=== PATIENT | male | born 1965 | race Caucasian/White ===

== ENCOUNTER 2018-11-01 21:35 | Inpatient (IN) | payer OTHER ==
[~2018-11-01] VITALS: Ht 180.3 cm; Wt 93.2 kg
[2018-11-01 22:15] VITALS: BP 156/85; PULSE 74; RESP 18; Ht 180.3 cm; Wt 93.2 kg
[2018-11-01] MEDS ORDERED: ACETAMINOPHEN 325 MG TAB PO PRN (22:30)
[2018-11-01] MEDS ORDERED: hydrALAzine 20 MG INJ IV PRN (22:30)
[2018-11-01] MEDS ORDERED: GLUCOSE GEL 15 GRAM TUBE BUCCAL PRN (23:00)
[2018-11-01] MEDS ORDERED: GLUCOSE GEL 15 GRAM TUBE PO PRN ×2 (23:00)
[2018-11-01] MEDS ORDERED: DEXTROSE 50% 50 ML SYRINGE IV PRN ×2 (23:00)
[2018-11-01] MEDS ORDERED: GLUCAGON 1 MG INJ IM PRN (23:00)
[2018-11-01] MEDS: ATORVASTATIN 10 MG TAB PO SCH (23:30)
[2018-11-01] MEDS: MAGNESIUM OXIDE 400 MG TAB PO SCH (23:30)
[2018-11-01] MEDS: FAMOTIDINE 20 MG TAB PO SCH (23:30)
[2018-11-01] MEDS: LEVETIRACETAM 500 MG TAB PO SCH (23:31)
[2018-11-01] MEDS: METOPROLOL 100 MG TAB PO SCH (23:31)
[2018-11-02] MEDS: ACCU-CHEK XX SCH (02:00)
[2018-11-02 02:25] VITALS: BP 150/82; PULSE 74; RESP 18
[2018-11-02] MEDS ORDERED: glipiZIDE 5 MG TAB GTB SCH (07:05)
[2018-11-02] MEDS: METOPROLOL 100 MG TAB PO SCH ×2 (07:19→21:02)
[2018-11-02] MEDS: metFORMIN 500 MG TAB PO SCH ×2 (07:57→17:40)
[2018-11-02] MEDS: INSULIN ASPART [NOVOLOG] 3 ML PEN SC SCH ×4 (07:59→20:58)
[2018-11-02 08:00] VITALS: BP 149/81; PULSE 68; RESP 18
[2018-11-02] MEDS: MAGNESIUM OXIDE 400 MG TAB PO SCH ×2 (08:52→21:02)
[2018-11-02] MEDS: HYDROCHLOROTHIAZIDE 12.5 MG CAP PO SCH (08:54)
[2018-11-02] MEDS: AMLODIPINE 10 MG TAB PO SCH (08:55)
[2018-11-02] MEDS: LEVETIRACETAM 500 MG TAB PO SCH ×2 (08:55→21:02)
[2018-11-02] MEDS: FAMOTIDINE 20 MG TAB PO SCH ×2 (08:55→21:02)
[2018-11-02] MEDS: DOCUSATE SODIUM 100 MG CAP PO SCH ×2 (08:55→21:01)
--- NOTE | 2018-11-02 10:48 | CONS ---
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 ACTIVE COMORBIDITIES: 1. Hypertension. 2. Hyponatremia. 3. Diabetes mellitus. 4. Impairments in self-care, mobility and cognition. HISTORY OF PRESENT ILLNESS: The patient is a pleasant 53-year-old right-handed gentleman who was admitted to an outside hospital with the sudden onset of left- sided weakness and hypertension. A head CT was performed and demonstrated an acute hemorrhagic CVA in the right basal ganglia and thalamic regions. The patient's hospital course was also notable for hyponatremia, hypocalcemia and hypertension. The patient noted to have significant impairments in self-care, mobility and cognition as compared to baseline. The patient has been cleared to transfer to the rehabilitation unit for comprehensive interdisciplinary rehab care. FUNCTIONAL HISTORY: Prior to recent events, he was independent in self-care tasks and mobility. Currently, he requires minimal to moderate assist for self- care and mobility tasks. I have reviewed the preadmission screen and patient's current functional status is consistent with the preadmission screen. FAMILY AND SOCIAL HISTORY: The patient reportedly had been living alone but does have a supportive family who he will be residing with upon discharge. PAST MEDICAL HISTORY: 1. Hypertension. 2. Diabetes mellitus. 3. Reported history of ETOH abuse. CURRENT MEDICATIONS: 1. Insulin sliding scale. 2. Amlodipine 10 mg p.o. daily. 3. Atorvastatin 10 mg p.o. daily. 4. Pepcid 20 mg b.i.d. 5. Glipizide 5 mg p.o. b.i.d. 6. Hydrochlorothiazide 12.5 mg p.o. daily. 7. Keppra 500 mg p.o. b.i.d. 8. Magnesium oxide 400 mg b.i.d. 9. Metformin 500 mg b.i.d. 10. Metoprolol 100 mg p.o. b.i.d. ALLERGIES: THE PATIENT WITH NO KNOWN DRUG ALLERGIES. PHYSICAL EXAMINATION: VITAL SIGNS: He is currently afebrile with stable vital signs. HEENT: The extraocular motions are intact. Oropharynx clear. NECK: Supple. LUNGS: Clear anteriorly. CARDIAC: S1, S2. ABDOMEN: Soft, nontender, positive bowel sounds. NEUROLOGIC: He is awake and alert and he is oriented x3. He can follow simple 1-step commands. He has 1/3 object recall at 5 minutes. He demonstrates good strength in the right upper and lower extremity. Left upper extremity with 3+ strength, left lower extremity with 3/5 strength proximally, patient with notable decreased dorsiflexion. PLAN: The patient has been admitted for comprehensive interdisciplinary acute rehab and is anticipated to tolerate 3 hours of daily therapy in divided doses for at least 5/7 days a week. The treatment plan will include: 1. Physical therapy to focus on bed mobility, transfers, and household ambulation with the goal of having the patient reach standby assist level. 2. Occupational therapy to focus on hygiene, grooming, dressing, bathing, and toileting activities with the goal of having the patient reach a standby assist level. 3. Rehabilitation nursing for carryover of therapeutic interventions, the goal of continent of bowel and bladder, and the goal of patient and family education with regard to the aforementioned issues. 4. Speech therapy for full cognitive assessment and retraining with the goal of having the patient return to baseline cognition. We will have an interdisciplinary cognitive program with physical therapy and occupational therapy including functional cognitive tasks with the goal of having the patient reach a standby assist level for cognition. REHABILITATION BARRIER: Weakness. INTERVENTION FOR BARRIER: Interdisciplinary approach. ESTIMATED LENGTH OF STAY: 10 days. DISPOSITION GOAL: Home with family. I acknowledge that I performed a full physical examination on this patient within 24 hours of admission. I believe the patient is a good candidate for comprehensive interdisciplinary rehab care and is anticipated to make reasonable goals in a reasonable period of time as outlined above. Dictated By: YOUNG MAYORGA/JANELLE Conf#: [id number] DID#: [id number] MTDD
--- NOTE | 2018-11-02 10:57 | HP ---
DATE OF ADMISSION: 11/01/2018 HISTORY OF PRESENT ILLNESS: The patient is a 53-year-old gentleman with past medical history of hype rtension, diabetes, alcohol use. Patient presents to [facility] after noting sudden onset of left-sided upper extremity and lower extremity weakness. Patient has work up and no izaiah to have intracranial hemorrhage in the basal ganglia. The patient was treated with blood pressur e control, had CTA that showed no plaquing, no narrowing, normal CTA. Blood pressure was managed. T he patient was started on treatments transferred to ARU for further physical therapy. PAST MEDICAL HISTORY: Significant for hypertension, diabetes. MEDICATIONS: Include: 1. Senna. 2. Amlodipine. 3. Hydrochlorothiazide. 4. Metformin. 5. Insulin. 6. Lipitor. 7. Metoprolol. 8. Keppra. 9. Famotidine. 10. Mag oxide. 11. Hydralazine. ALLERGIES: THE PATIENT HAS NO KNOWN ALLERGIES. SOCIAL HISTORY: Does not smoke, drink or do drugs. FAMILY HISTORY: No history of kidney disease. REVIEW OF SYSTEMS: A 14-point review of systems attempted and negative. PHYSICAL EXAMINATION: VITAL SIGNS: We see temperature 98.3, blood pressure 149/81 systolic. HEENT: Normocephalic. Pupils are round. NECK: Supple. HEART: Regular rate and rhythm. LUNGS: Clear to auscultation. ABDOMEN: Soft, nontender, nondistended. LABORATORY EVALUATION: White count 12.3, hemoglobin 12, hematocrit 32. Sodium 134, potassium 4.0, B UN 12, creatinine 0.68. UA is reviewed microscopy. x-ray is reviewed with radiologist. IMPRESSION: 1. Status post right basal ganglia and thalamic intracranial hemorrhage, now on Keppra for seizure p rophylaxis. Blood pressure management. Continue same. 2. Diabetes. Continue regular medications. Sliding scale. 3. Hypertension. Continue same. 4. Anemia, mild. Monitor. 5. Leukocytosis, possibly stress related. Monitor. No evidence of infection at this time. Prophyla xis, continue as directed. Dictated By: DILLON RUTLEDGE MD DF/NTS Conf#: [id number] DID#: [id number]
[2018-11-02 14:00] VITALS: BP 140/69; PULSE 67; RESP 18
[2018-11-02 20:15] VITALS: BP 142/75; PULSE 65; RESP 18
[2018-11-02] MEDS: ATORVASTATIN 10 MG TAB PO SCH (21:02)
[2018-11-02] MEDS: SENNA TAB PO SCH (21:02)
[2018-11-02] MEDS: VITAMIN A & D 5 GM OINT PACKET TOP SCH (21:03)
[2018-11-03 02:00] VITALS: BP 129/73; PULSE 65
[2018-11-03] MEDS: ACCU-CHEK XX SCH (02:07)
[2018-11-03] MEDS: metFORMIN 500 MG TAB PO SCH ×2 (07:37→17:14)
[2018-11-03] MEDS: INSULIN ASPART [NOVOLOG] 3 ML PEN SC SCH ×4 (07:39→20:33)
[2018-11-03 08:00] VITALS: BP 144/70; PULSE 65; RESP 18
[2018-11-03] MEDS: LEVETIRACETAM 500 MG TAB PO SCH ×2 (08:07→20:30)
[2018-11-03] MEDS: METOPROLOL 100 MG TAB PO SCH ×2 (08:07→20:31)
[2018-11-03] MEDS: DOCUSATE SODIUM 100 MG CAP PO SCH ×2 (08:07→20:30)
[2018-11-03] MEDS: MAGNESIUM OXIDE 400 MG TAB PO SCH ×2 (08:07→20:30)
[2018-11-03] MEDS: VITAMIN A & D 5 GM OINT PACKET TOP SCH ×2 (08:07→20:30)
[2018-11-03] MEDS: HYDROCHLOROTHIAZIDE 12.5 MG CAP PO SCH (08:07)
[2018-11-03] MEDS: AMLODIPINE 10 MG TAB PO SCH (08:08)
--- NOTE | 2018-11-03 08:13 | CONS ---
Consult Date/Type/Reason Admit Date/Time Nov 01, 2018 at 21:35 Initial Consult Date Date/Time of Note DATE: 11/03/18 TIME: 08:12 Subjective 53-year-old gentleman with past medical history of hypertension, diabetes, alcohol use. Patient presents to OSH after noting sudden onset of left-sided upper extremity and lower extremity weakness. Patient has work up and noted to have intracranial hemorrhage in the basal ganglia. The patient was treated with blood pressure control, had CTA that showed no plaquing, no narrowing, normal CTA. Blood pressure was managed. The patient was started on treatments transferred to ARU for further physical therapy. REVIEW OF SYSTEMS: A 14-point review of systems attempted and negative. PHYSICAL EXAMINATION: HEENT: Normocephalic. Pupils are round. NECK: Supple. HEART: Regular rate and rhythm. LUNGS: Clear to auscultation. ABDOMEN: Soft, nontender, nondistended. Objective Vitals Vital Signs Date Temp Pulse Resp B/P (MAP) Pulse Ox O2 O2 Flow FiO2 Time Delivery Rate 11/03/18 98.6 65 129/73 98 Room Air 02:00 (91) 11/02/18 18 20:15 Intake and Output 11/02/18 11/02/18 11/03/18 1515:00 23:00 07:00 IntakeIntake Total 1500 ml OutputOutput Total 1200 ml 800 ml BalanceBalance 300 ml -800 ml Results/Medications Result Diagram: 11/02/18 0602 11/02/18 0602 Results 24 hrs Laboratory Tests Test 11/02/18 12:01 11/02/18 17:39 11/02/18 20:49 11/03/18 02:04 Bedside Glucose 207 196 200 189 Test 11/03/18 07:35 Bedside Glucose 182 Medications Current Medications Diagnostic Test (Pha) (Accu-Chek) 1 ea 02 XX Last administered on 11/03/18at 02:07; Admin Dose 1 EA; Start 11/02/18 at 02:00 Insulin Aspart (Novolog Insulin Pen) NOVOLOG *MILD* ALGORITHM WITH MEALS BEDTIME SC Last administered on 11/03/18at 07:39; Admin Dose 2 UNIT; Start 11/02/18 at 07:35 Amlodipine Besylate (Norvasc) 10 mg DAILY PO Last administered on 11/03/18at 08:08; Admin Dose 10 MG; Start 11/02/18 at 09:00 Atorvastatin Calcium (Lipitor) 10 mg HS PO Last administered on 11/02/18at 21:02; Admin Dose 10 MG; Start 11/01/18 at 22:30 Famotidine (Pepcid) 20 mg BID PO Last administered on 11/02/18at 21:02; Admin Dose 20 MG; Start 11/01/18 at 22:30 Hydrochlorothiazide (Hydrochlorothiazide) 12.5 mg DAILY PO Last administered on 11/03/18at 08:07; Admin Dose 12.5 MG; Start 11/02/18 at 09:00 Levetiracetam (Keppra) 500 mg BID PO Last administered on 11/03/18 08:07; Admin Dose 500 MG; Start 11/01/18 at 22:30 Magnesium Oxide (Mag-Ox 400) 400 mg BID PO Last administered on 11/03/18 08:07; Admin Dose 400 MG; Start 11/01/18 at 22:30 Metformin HCl (Glucophage) 500 mg BID WITH MEALS PO Last administered on 11/03/18at 07:37; Admin Dose 500 MG; Start 11/02/18 at 07:35 Metoprolol Tartrate (Lopressor) 100 mg BID PO Last administered on 11/03/18 08:07; Admin Dose 100 MG; Start 11/01/18 at 22:30 Acetaminophen (Tylenol Tab) 650 mg Q4H PRN PO MILD PAIN(1-3)OR ELEVATED TEMP; Start 11/01/18 at 22:30 Hydralazine HCl (Apresoline) 20 mg Q8H PRN IV ELEVATED BLOOD PRESSURE; Start 11/01/18 at 22:30 Miscellaneous Information 1 ea NOTE XX ; Start 11/01/18 at 23:00 Glucose (Glutose) 15 gm Q15M PRN PO DECREASED GLUCOSE; Start 11/01/18 at 23:00 Glucose (Glutose) 22.5 gm Q15M PRN PO DECREASED GLUCOSE; Start 11/01/18 at 23:00 Dextrose (D50w Syringe) 25 ml Q15M PRN IV DECREASED GLUCOSE; Start 11/01/18 at 23:00 Dextrose (D50w Syringe) 50 ml Q15M PRN IV DECREASED GLUCOSE; Start 11/01/18 at 23:00 Glucagon (Glucagen) 1 mg Q15M PRN IM DECREASED GLUCOSE; Start 11/01/18 at 23:00 Glucose (Glutose) 15 gm Q15M PRN BUCCAL DECREASED GLUCOSE; Start 11/01/18 at 23:00 Docusate Sodium (Colace) 100 mg BID PO Last administered on 11/03/18 08:07; Admin Dose 100 MG; Start 11/02/18 at 09:00 Senna (Senokot) 1 tab HS PO Last administered on 11/02/18at 21:02; Admin Dose 1 TAB; Start 11/02/18 at 21:00 Vitamin A/Vitamin D (Vitamin A & D Oint) 1 applic BID TOP Last administered on 11/03/18 08:07; Admin Dose 1 APPLIC; Start 11/02/18 at 21:00 Assessment/Plan Hospital Course (Demo Recall) 1. Status post right basal ganglia and thalamic intracranial hemorrhage, now on Keppra for seizure prophylaxis. Blood pressure management. Continue same. 2. Diabetes. Continue regular medications. Sliding scale. 3. Hypertension. Continue same. 4. Anemia, mild. Monitor. 5. Leukocytosis, possibly stress related. Monitor. No evidence of infection at this time. 6. Prophylaxis, continue as ordered DILLON RUTLEDGE MD Nov 03, 2018 08:13
[2018-11-03] MEDS ORDERED: ZOLPIDEM 5 MG TAB PO PRN (08:30)
[2018-11-03] MEDS: FAMOTIDINE 20 MG TAB PO SCH ×2 (09:53→20:30)
[2018-11-03 14:00] VITALS: BP 145/72; PULSE 72; RESP 18
[2018-11-03 20:00] VITALS: BP 155/80; PULSE 71; RESP 18
[2018-11-03] MEDS: ATORVASTATIN 10 MG TAB PO SCH (20:30)
[2018-11-03] MEDS: SENNA TAB PO SCH (20:30)
[2018-11-04 02:00] VITALS: BP 146/75; PULSE 74; RESP 17
[2018-11-04] MEDS: ACCU-CHEK XX SCH ×4 (02:11→21:00)
[2018-11-04] MEDS: metFORMIN 500 MG TAB PO SCH ×2 (07:43→17:40)
[2018-11-04] MEDS: INSULIN ASPART [NOVOLOG] 3 ML PEN SC SCH ×4 (07:46→20:24)
[2018-11-04 08:00] VITALS: BP 133/79; PULSE 70; RESP 18
[2018-11-04] MEDS: DOCUSATE SODIUM 100 MG CAP PO SCH ×2 (08:31→20:18)
[2018-11-04] MEDS: FAMOTIDINE 20 MG TAB PO SCH ×2 (08:32→20:18)
[2018-11-04] MEDS: MAGNESIUM OXIDE 400 MG TAB PO SCH ×2 (08:32→20:18)
[2018-11-04] MEDS: LINAGLIPTIN 5 MG TABLET PO SCH (08:32)
[2018-11-04] MEDS: LEVETIRACETAM 500 MG TAB PO SCH ×2 (08:32→20:17)
[2018-11-04] MEDS: AMLODIPINE 10 MG TAB PO SCH (08:32)
[2018-11-04] MEDS: METOPROLOL 100 MG TAB PO SCH ×2 (08:33→20:19)
[2018-11-04] MEDS: HYDROCHLOROTHIAZIDE 12.5 MG CAP PO SCH (08:33)
[2018-11-04] MEDS: VITAMIN A & D 5 GM OINT PACKET TOP SCH ×2 (08:33→20:19)
--- NOTE | 2018-11-04 12:18 | PN ---
Date/Time of Note Date/Time of Note DATE: 11/04/18 TIME: 12:16 Objective Vital Signs Date Temp Pulse Resp B/P (MAP) Pulse Ox O2 O2 Flow FiO2 Time Delivery Rate 11/04/18 98.1 70 18 133/79 99 Room Air 08:00 (97) Intake and Output 11/03/18 11/03/18 11/04/18 1515:00 23:00 07:00 IntakeIntake Total 1700 ml OutputOutput Total 1150 ml 1000 ml BalanceBalance 550 ml -1000 ml Exam INTERDISCIPLINARY TEAM CONFERENCE Physical Exam: Pulm- cta Abd- soft BOWEL- Cont BLADDER-Cont SKIN- intact OT- DRESSING-min/mod BATHING-min/mod TOILETING-min/mod PT- BED MOBILITY- cga TRANSFERS- mod AMBULATION- mod 25 feet SPEECH- COGNITION- s A/P- Interdisciplinary team conference held today. Please see interdisciplinary sheet. Working toward d.c. on 11/07 with post discharge follow up of physical therapy, occupational therapy. Results/Medications Result Diagram: 11/02/18 0602 11/02/18 0602 Results 24 hrs Laboratory Tests Test 11/03/18 17:13 11/03/18 20:28 11/04/18 01:43 11/04/18 07:41 Bedside Glucose 185 225 H 179 192 Medications Current Medications Diagnostic Test (Pha) (Accu-Chek) 1 ea 02 XX Last administered on 11/04/18at 02:11; Admin Dose 1 EA; Start 11/02/18 at 02:00 Insulin Aspart (Novolog Insulin Pen) NOVOLOG *MILD* ALGORITHM WITH MEALS BEDTIME SC Last administered on 11/04/18at 07:46; Admin Dose 2 UNIT; Start 11/02/18 at 07:35 Amlodipine Besylate (Norvasc) 10 mg DAILY PO Last administered on 11/04/18 08:32; Admin Dose 10 MG; Start 11/02/18 at 09:00 Atorvastatin Calcium (Lipitor) 10 mg HS PO Last administered on 11/03/18at 20:30 ; Admin Dose 10 MG; Start 11/01/18 at 22:30 Famotidine (Pepcid) 20 mg BID PO Last administered on 11/04/18 08:32; Admin Dose 20 MG; Start 11/01/18 at 22:30 Hydrochlorothiazide (Hydrochlorothiazide) 12.5 mg DAILY PO Last administered on 11/04/18 08:33; Admin Dose 12.5 MG; Start 11/02/18 at 09:00 Levetiracetam (Keppra) 500 mg BID PO Last administered on 11/04/18 08:32; Admin Dose 500 MG; Start 11/01/18 at 22:30 Magnesium Oxide (Mag-Ox 400) 400 mg BID PO Last administered on 11/04/18 08:32; Admin Dose 400 MG; Start 11/01/18 at 22:30 Metformin HCl (Glucophage) 500 mg BID WITH MEALS PO Last administered on 11/04/18 07:43; Admin Dose 500 MG; Start 11/02/18 at 07:35 Metoprolol Tartrate (Lopressor) 100 mg BID PO Last administered on 11/04/18 08:33; Admin Dose 100 MG; Start 11/01/18 at 22:30 Acetaminophen (Tylenol Tab) 650 mg Q4H PRN PO MILD PAIN(1-3)OR ELEVATED TEMP; Start 11/01/18 at 22:30 Hydralazine HCl (Apresoline) 20 mg Q8H PRN IV ELEVATED BLOOD PRESSURE; Start 11/01/18 at 22:30 Miscellaneous Information 1 ea NOTE XX ; Start 11/01/18 at 23:00 Glucose (Glutose) 15 gm Q15M PRN PO DECREASED GLUCOSE; Start 11/01/18 at 23:00 Glucose (Glutose) 22.5 gm Q15M PRN PO DECREASED GLUCOSE; Start 11/01/18 at 23:00 Dextrose (D50w Syringe) 25 ml Q15M PRN IV DECREASED GLUCOSE; Start 11/01/18 at 23:00 Dextrose (D50w Syringe) 50 ml Q15M PRN IV DECREASED GLUCOSE; Start 11/01/18 at 23:00 Glucagon (Glucagen) 1 mg Q15M PRN IM DECREASED GLUCOSE; Start 11/01/18 at 23:00 Glucose (Glutose) 15 gm Q15M PRN BUCCAL DECREASED GLUCOSE; Start 11/01/18 at 23:00 Docusate Sodium (Colace) 100 mg BID PO Last administered on 11/04/18 08:31; Admin Dose 100 MG; Start 11/02/18 at 09:00 Senna (Senokot) 1 tab HS PO Last administered on 11/03/18at 20:30; Admin Dose 1 TAB; Start 11/02/18 at 21:00 Vitamin A/Vitamin D (Vitamin A & D Oint) 1 applic BID TOP Last administered on 11/04/18at 08:33; Admin Dose 1 APPLIC; Start 11/02/18 at 21:00 Zolpidem Tartrate (Ambien) 5 mg HS PRN PO INSOMNIA; Start 11/03/18 at 08:30 Linagliptin (Tradjenta) 5 mg DAILY PO Last administered on 11/04/18at 08:32; Admin Dose 5 MG; Start 11/04/18 at 09:00 Diagnostic Test (Pha) (Accu-Chek) 1 ea AC MEALS AND BEDTIME XX ; Start 11/04/18 at 11:30 YOUNG HNERY MD Nov 04, 2018 12:18
[2018-11-04 14:00] VITALS: BP 142/78; PULSE 78; RESP 18
--- NOTE | 2018-11-04 15:32 | PN ---
DATE: 11/04/2018 SUBJECTIVE: The patient is stable, no events overnight. No fevers, chills, nausea, vomiting. OBJECTIVE: VITAL SIGNS: Blood pressure is 146/75, respirations 17, pulse 74, temperature 98.4. HEENT: Head is normocephalic. NECK: Supple. HEART: Regular rate. LUNGS: Show diminished breath sounds at the base. ABDOMEN: Soft, nontender to palpation without rebound or guarding. EXTREMITIES: Negative for clubbing, cyanosis. The patient has noted soft cast over his left ankle. DERMATOLOGIC: No rashes. MUSCULOSKELETAL: No joint effusion. NEUROLOGIC: No change in exam. MEDICATIONS: Reviewed. LABORATORY DATA: Reviewed. ASSESSMENT AND PLAN: 1. Right basal ganglia and thalamic intracranial hemorrhage. The patient is currently stable. Cont inue current medical management. Continue Keppra for seizure prophylaxis. 2. Diabetes. Continue Accu-Cheks, insulin sliding scale. 3. Hypertension. Continue current blood pressure regimen. 4. Anemia. Monitor hemoglobin and hematocrit levels. 5. Leukocytosis. Continue to monitor and repeat a BMP. 6. Debility. Continue physical therapy and occupational therapy. 7. Mild anemia. Monitor hemoglobin and hematocrit levels. 8. Diabetes. Continue current diabetic regimen, adjust as needed. 9. Gastrointestinal and deep vein thrombosis prophylaxis. Dictated By: TALI CABRAL/JANELLE Conf#: [id number] DID#: [id number] CC: SARAH HENRY MD;*EndCC*
[2018-11-04] MEDS: SENNA TAB PO SCH (20:17)
[2018-11-04] MEDS: ATORVASTATIN 10 MG TAB PO SCH (20:18)
[2018-11-05 02:00] VITALS: BP 152/75; PULSE 74; RESP 18
[2018-11-05] MEDS: ACCU-CHEK XX SCH ×8 (02:00→21:13)
[2018-11-05] MEDS: INSULIN ASPART [NOVOLOG] 3 ML PEN SC SCH ×4 (07:53→21:00)
[2018-11-05 08:00] VITALS: BP 134/78; PULSE 74; RESP 18
[2018-11-05] MEDS: DOCUSATE SODIUM 100 MG CAP PO SCH ×2 (08:07→21:05)
[2018-11-05] MEDS: LEVETIRACETAM 500 MG TAB PO SCH ×2 (08:07→21:05)
[2018-11-05] MEDS: AMLODIPINE 10 MG TAB PO SCH (08:07)
[2018-11-05] MEDS: MAGNESIUM OXIDE 400 MG TAB PO SCH ×2 (08:07→21:05)
[2018-11-05] MEDS: METOPROLOL 100 MG TAB PO SCH ×2 (08:07→21:06)
[2018-11-05] MEDS: FAMOTIDINE 20 MG TAB PO SCH ×2 (08:08→21:05)
[2018-11-05] MEDS: LINAGLIPTIN 5 MG TABLET PO SCH (08:08)
[2018-11-05] MEDS: HYDROCHLOROTHIAZIDE 12.5 MG CAP PO SCH (08:08)
[2018-11-05] MEDS: VITAMIN A & D 5 GM OINT PACKET TOP SCH ×2 (08:08→21:05)
--- NOTE | 2018-11-05 08:24 | PN ---
DATE: 11/05/2018 SUBJECTIVE: The patient is stable. No events overnight. No fevers, chills, nausea, vomiting. OBJECTIVE: VITAL SIGNS: Blood pressure is 152/75, respiration 18, pulse 74, temperature 98.2. HEENT: Head is normocephalic. NECK: Supple. HEART: Regular rate. LUNGS: Show diminished breath sounds at the base. ABDOMEN: Soft, nontender to palpation. No rebound or guarding. EXTREMITIES: Negative for clubbing, cyanosis, no edema. DERMATOLOGIC: No rashes. MUSCULOSKELETAL: No joint effusions. NEUROLOGIC: No change in exam. MEDICATIONS: Reviewed. LABORATORY DATA: Shows white count 11.2, hemoglobin 11.5, platelet count is 180. BMP within normal limits. The patient's glucose levels were reviewed. ASSESSMENT AND PLAN: 1. Right basal ganglia thalamic intracranial hemorrhage. The patient is currently stable. Continue medical management. Continue Keppra for seizure prophylaxis. 2. Diabetes. The patient's insulin regimen was adjusted. Will continue to monitor. Appreciate flavio rita coordinator's help and recommendations. 3. Hypertension. Continue current blood pressure regimen. 4. Anemia. Monitor hemoglobin and hematocrit levels. 5. Leukocytosis/SIRS. The patient's white count was noted. No overt evidence of infection. Contin ue to monitor. 6. Debility. Continue physical therapy. 7. Gastrointestinal and deep vein thrombosis prophylaxis. Dictated By: TALI CABRAL/JANELLE Conf#: [id number] DID#: [id number] CC: YOUNG HENRY MD;*EndCC*
--- NOTE | 2018-11-05 11:19 | PN ---
Date/Time of Note Date/Time of Note DATE: 11/05/18 TIME: 11:17 Subjective Doing well Objective Vital Signs Date Temp Pulse Resp B/P (MAP) Pulse Ox O2 O2 Flow FiO2 Time Delivery Rate 11/05/18 97.5 74 18 134/78 97 Room Air 08:00 (96) Intake and Output 11/04/18 11/04/18 11/05/18 1515:00 23:00 07:00 IntakeIntake Total 840 ml 240 ml OutputOutput Total 720 ml 1900 ml BalanceBalance 120 ml -1660 ml Exam pulm-cta min transfer and ambulation Results/Medications Result Diagram: 11/05/18 0635 11/05/18 0635 Results 24 hrs Laboratory Tests Test 11/04/18 12:15 11/04/18 17:34 11/04/18 20:16 11/05/18 02:08 Bedside Glucose 234 H 268 H 190 194 Test 11/05/18 06:35 11/05/18 07:52 White Blood Count 11.2 H Red Blood Count 3.99 L Hemoglobin 11.5 L Hematocrit 31.2 L Mean Corpuscular 78.2 L Volume Mean Corpuscular 28.8 L Hemoglobin Mean Corpuscular 36.9 Hemoglobin Concent Red Cell 11.8 Distribution Width Platelet Count 180 Mean Platelet Volume 9.2 Immature 0.400 Granulocytes % Neutrophils % 58.0 Lymphocytes % 26.5 Monocytes % 8.1 Eosinophils % 6.2 Basophils % 0.8 Nucleated Red Blood 0.0 Cells % Immature 0.050 H Granulocytes # Neutrophils # 6.5 Lymphocytes # 3.0 H Monocytes # 0.9 Eosinophils # 0.7 H Basophils # 0.1 Nucleated Red Blood 0.0 Cells # Sodium Level 136 Potassium Level 3.8 Chloride Level 99 Carbon Dioxide Level 27 Anion Gap 10 Blood Urea Nitrogen 16 Creatinine 0.64 Est Glomerular > 60 Filtrat Rate mL/min Glucose Level 202 Calcium Level 9.2 Phosphorus Level 4.8 Magnesium Level 1.7 Bedside Glucose 194 Medications Current Medications Diagnostic Test (Pha) (Accu-Chek) 1 ea 02 XX Last administered on 11/04/18at 02:11; Admin Dose 1 EA; Start 11/02/18 at 02:00 Insulin Aspart (Novolog Insulin Pen) NOVOLOG *MILD* ALGORITHM WITH MEALS BEDTIME SC Last administered on 11/05/18at 07:53; Admin Dose 2 UNIT; Start 11/02/18 at 07:35 Amlodipine Besylate (Norvasc) 10 mg DAILY PO Last administered on 11/05/18 08:07; Admin Dose 10 MG; Start 11/02/18 at 09:00 Atorvastatin Calcium (Lipitor) 10 mg HS PO Last administered on 11/04/18 20:18; Admin Dose 10 MG; Start 11/01/18 at 22:30 Famotidine (Pepcid) 20 mg BID PO Last administered on 11/05/18 08:08; Admin Dose 20 MG; Start 11/01/18 at 22:30 Hydrochlorothiazide (Hydrochlorothiazide) 12.5 mg DAILY PO Last administered on 11/05/18 08:08; Admin Dose 12.5 MG; Start 11/02/18 at 09:00 Levetiracetam (Keppra) 500 mg BID PO Last administered on 11/05/18 08:07; Admin Dose 500 MG; Start 11/01/18 at 22:30 Magnesium Oxide (Mag-Ox 400) 400 mg BID PO Last administered on 11/05/18 08:07; Admin Dose 400 MG; Start 11/01/18 at 22:30 Metoprolol Tartrate (Lopressor) 100 mg BID PO Last administered on 11/05/18 08:07; Admin Dose 100 MG; Start 11/01/18 at 22:30 Acetaminophen (Tylenol Tab) 650 mg Q4H PRN PO MILD PAIN(1-3)OR ELEVATED TEMP; Start 11/01/18 at 22:30 Hydralazine HCl (Apresoline) 20 mg Q8H PRN IV ELEVATED BLOOD PRESSURE; Start 11/01/18 at 22:30 Miscellaneous Information 1 ea NOTE XX ; Start 11/01/18 at 23:00 Glucose (Glutose) 15 gm Q15M PRN PO DECREASED GLUCOSE; Start 11/01/18 at 23:00 Glucose (Glutose) 22.5 gm Q15M PRN PO DECREASED GLUCOSE; Start 11/01/18 at 23:00 Dextrose (D50w Syringe) 25 ml Q15M PRN IV DECREASED GLUCOSE; Start 11/01/18 at 23:00 Dextrose (D50w Syringe) 50 ml Q15M PRN IV DECREASED GLUCOSE; Start 11/01/18 at 23:00 Glucagon (Glucagen) 1 mg Q15M PRN IM DECREASED GLUCOSE; Start 11/01/18 at 23:00 Glucose (Glutose) 15 gm Q15M PRN BUCCAL DECREASED GLUCOSE; Start 11/01/18 at 23:00 Docusate Sodium (Colace) 100 mg BID PO Last administered on 11/05/18 08:07; Admin Dose 100 MG; Start 11/02/18 at 09:00 Senna (Senokot) 1 tab HS PO Last administered on 11/04/18at 20:17; Admin Dose 1 TAB; Start 11/02/18 at 21:00 Vitamin A/Vitamin D (Vitamin A & D Oint) 1 applic BID TOP Last administered on 11/05/18at 08:08; Admin Dose 1 APPLIC; Start 11/02/18 at 21:00 Zolpidem Tartrate (Ambien) 5 mg HS PRN PO INSOMNIA; Start 11/03/18 at 08:30 Linagliptin (Tradjenta) 5 mg DAILY PO Last administered on 11/05/18at 08:08; Admin Dose 5 MG; Start 11/04/18 at 09:00 Diagnostic Test (Pha) (Accu-Chek) 1 ea AC MEALS AND BEDTIME XX Last administered on 11/04/18 21:00; Admin Dose 1 EA; Start 11/04/18 at 11:30 Metformin HCl (Glucophage) 1,000 mg BID WITH MEALS PO ; Start 11/05/18 at 17:35 Repaglinide (Prandin) 0.5 mg BEFORE MEALS PO ; Start 11/05/18 at 11:30 Diagnostic Test (Pha) (Accu-Chek) 1 ea AC MEALS AND BEDTIME XX ; Start 11/05/18 at 11:30 Assessment/Plan Additional Assessment/Plan Rehab- Hemorrhagic right basal ganglia and thalamic cerebrovascular accident with left-sided weakness. Continue rehab program Hypertension. Diabetes mellitus. YOUNG HENRY MD Nov 05, 2018 11:19
[2018-11-05] MEDS: REPAGLINIDE 1 MG TAB PO SCH ×2 (12:03→17:23)
[2018-11-05 14:00] VITALS: BP 139/74; PULSE 69; RESP 18
[2018-11-05] MEDS: metFORMIN 500 MG TAB PO SCH (17:24)
[2018-11-05 19:45] VITALS: BP 140/70; PULSE 74; RESP 17
[2018-11-05] MEDS: ATORVASTATIN 10 MG TAB PO SCH (21:05)
[2018-11-05] MEDS: SENNA TAB PO SCH (21:05)
[2018-11-06] MEDS: ACCU-CHEK XX SCH ×9 (02:00→21:19)
[2018-11-06] MEDS: metFORMIN 500 MG TAB PO SCH ×2 (07:47→17:23)
[2018-11-06] MEDS: REPAGLINIDE 1 MG TAB PO SCH ×3 (07:47→17:22)
[2018-11-06] MEDS: INSULIN ASPART [NOVOLOG] 3 ML PEN SC SCH ×4 (07:51→21:00)
[2018-11-06 07:55] VITALS: BP 151/81; PULSE 70; RESP 18
[2018-11-06] MEDS: VITAMIN A & D 5 GM OINT PACKET TOP SCH ×2 (08:49→21:11)
[2018-11-06] MEDS: LINAGLIPTIN 5 MG TABLET PO SCH (08:50)
[2018-11-06] MEDS: HYDROCHLOROTHIAZIDE 12.5 MG CAP PO SCH (08:50)
[2018-11-06] MEDS: LEVETIRACETAM 500 MG TAB PO SCH ×2 (08:50→21:12)
[2018-11-06] MEDS: FAMOTIDINE 20 MG TAB PO SCH ×2 (08:50→21:13)
[2018-11-06] MEDS: METOPROLOL 100 MG TAB PO SCH ×2 (08:50→21:13)
[2018-11-06] MEDS: AMLODIPINE 10 MG TAB PO SCH (08:51)
[2018-11-06] MEDS: MAGNESIUM OXIDE 400 MG TAB PO SCH ×2 (08:51→21:12)
[2018-11-06] MEDS: DOCUSATE SODIUM 100 MG CAP PO SCH ×2 (08:51→21:13)
--- NOTE | 2018-11-06 09:06 | PN ---
DATE: 11/06/2018 SUBJECTIVE: The patient is stable, no events overnight. OBJECTIVE: VITAL SIGNS: Blood pressure is 151/81, pulse 70, respirations 18, temperature 98.1. HEENT: Head is normocephalic. NECK: Supple. HEART: Regular rate. LUNGS: Show diminished breath sounds at the base. ABDOMEN: Soft, nontender to palpation without rebound or guarding. EXTREMITIES: Negative for clubbing, cyanosis, no edema. DERMATOLOGIC: No rashes. MUSCULOSKELETAL: No joint effusion. NEUROLOGIC: No change in exam. MEDICATIONS: Reviewed. LABORATORY DATA: Reviewed. ASSESSMENT AND PLAN: 1. Right basal ganglia intracranial hemorrhage. The patient is currently stable. Continue medical management. Continue Keppra for seizure prophylaxis. 2. Diabetes. The patient's diabetic regimen was adjusted. Glucose levels are improving. Continue to monitor. Continue to adjust as needed. 3. Hypertension. Continue current blood pressure regimen. 4. Anemia. Continue to monitor hemoglobin and hematocrit levels. 5. The patient has no overt evidence of infection. Continue to monitor. 6. Debility. Continue physical therapy. 7. Gastrointestinal and deep vein thrombosis prophylaxis. Dictated By: TALI POWERS DO NR/NTS Conf#: [id number] DID#: [id number] CC: YOUNG HENRY MD; TALI POWERS DO;*EndCC*
--- NOTE | 2018-11-06 12:01 | PN ---
Date/Time of Note Date/Time of Note DATE: 11/06/18 TIME: 11:59 Subjective Patient motivated Objective Vital Signs Date Temp Pulse Resp B/P (MAP) Pulse Ox O2 O2 Flow FiO2 Time Delivery Rate 11/06/18 98.1 70 18 151/81 97 Room Air 07:55 (104) Intake and Output 11/05/18 11/05/18 11/06/18 1515:00 23:00 07:00 IntakeIntake Total 1150 ml 800 ml OutputOutput Total 600 ml 2200 ml BalanceBalance 550 ml -1400 ml Exam pulm-cta min transfer and ambulation 75 feet Results/Medications Result Diagram: 11/05/18 0635 11/05/18 0635 Results 24 hrs Laboratory Tests Test 11/05/18 12:00 11/05/18 17:23 11/05/18 21:04 11/06/18 07:46 Bedside Glucose 214 168 160 172 Test 11/06/18 08:49 Bedside Glucose 193 Medications Current Medications Diagnostic Test (Pha) (Accu-Chek) 1 ea 02 XX Last administered on 11/04/18 02:11; Admin Dose 1 EA; Start 11/02/18 at 02:00 Insulin Aspart (Novolog Insulin Pen) NOVOLOG *MILD* ALGORITHM WITH MEALS BEDTIME SC Last administered on 11/06/18 07:51; Admin Dose 1 UNIT; Start 11/02/18 at 07:35 Amlodipine Besylate (Norvasc) 10 mg DAILY PO Last administered on 11/06/18 08:51; Admin Dose 10 MG; Start 11/02/18 at 09:00 Atorvastatin Calcium (Lipitor) 10 mg HS PO Last administered on 11/05/18 21:05 ; Admin Dose 10 MG; Start 11/01/18 at 22:30 Famotidine (Pepcid) 20 mg BID PO Last administered on 11/06/18 08:50; Admin Dose 20 MG; Start 11/01/18 at 22:30 Hydrochlorothiazide (Hydrochlorothiazide) 12.5 mg DAILY PO Last administered on 11/06/18 08:50; Admin Dose 12.5 MG; Start 11/02/18 at 09:00 Levetiracetam (Keppra) 500 mg BID PO Last administered on 11/06/18 08:50; Admin Dose 500 MG; Start 11/01/18 at 22:30 Magnesium Oxide (Mag-Ox 400) 400 mg BID PO Last administered on 11/06/18at 08:51; Admin Dose 400 MG; Start 11/01/18 at 22:30 Metoprolol Tartrate (Lopressor) 100 mg BID PO Last administered on 11/06/18at 08:50; Admin Dose 100 MG; Start 11/01/18 at 22:30 Acetaminophen (Tylenol Tab) 650 mg Q4H PRN PO MILD PAIN(1-3)OR ELEVATED TEMP; Start 11/01/18 at 22:30 Hydralazine HCl (Apresoline) 20 mg Q8H PRN IV ELEVATED BLOOD PRESSURE; Start 11/01/18 at 22:30 Miscellaneous Information 1 ea NOTE XX ; Start 11/01/18 at 23:00 Glucose (Glutose) 15 gm Q15M PRN PO DECREASED GLUCOSE; Start 11/01/18 at 23:00 Glucose (Glutose) 22.5 gm Q15M PRN PO DECREASED GLUCOSE; Start 11/01/18 at 23:00 Dextrose (D50w Syringe) 25 ml Q15M PRN IV DECREASED GLUCOSE; Start 11/01/18 at 23:00 Dextrose (D50w Syringe) 50 ml Q15M PRN IV DECREASED GLUCOSE; Start 11/01/18 at 23:00 Glucagon (Glucagen) 1 mg Q15M PRN IM DECREASED GLUCOSE; Start 11/01/18 at 23:00 Glucose (Glutose) 15 gm Q15M PRN BUCCAL DECREASED GLUCOSE; Start 11/01/18 at 23:00 Docusate Sodium (Colace) 100 mg BID PO Last administered on 11/06/18at 08:51; Admin Dose 100 MG; Start 11/02/18 at 09:00 Senna (Senokot) 1 tab HS PO Last administered on 11/05/18at 21:05; Admin Dose 1 TAB; Start 11/02/18 at 21:00 Vitamin A/Vitamin D (Vitamin A & D Oint) 1 applic BID TOP Last administered on 11/06/18at 08:49; Admin Dose 1 APPLIC; Start 11/02/18 at 21:00 Zolpidem Tartrate (Ambien) 5 mg HS PRN PO INSOMNIA; Start 11/03/18 at 08:30 Linagliptin (Tradjenta) 5 mg DAILY PO Last administered on 11/06/18 08:50; Admin Dose 5 MG; Start 11/04/18 at 09:00 Diagnostic Test (Pha) (Accu-Chek) 1 ea AC MEALS AND BEDTIME XX Last administered on 11/05/18 21:13; Admin Dose 1 EA; Start 11/04/18 at 11:30 Metformin HCl (Glucophage) 1,000 mg BID WITH MEALS PO Last administered on 11/06/18 07:47; Admin Dose 1,000 MG; Start 11/05/18 at 17:35 Repaglinide (Prandin) 0.5 mg BEFORE MEALS PO Last administered on 11/06/18 07:47; Admin Dose 0.5 MG; Start 11/05/18 at 11:30 Diagnostic Test (Pha) (Accu-Chek) 1 ea AC MEALS AND BEDTIME XX Last administered on 11/05/18 21:13; Admin Dose 1 EA; Start 11/05/18 at 11:30 Assessment/Plan Additional Assessment/Plan Rehab- 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 Continue rehab program. Patient would benefit from continued rehab with a goal of MS for self care and mobility , and SBA for stair mobility, given that there are multiple stairs at home Hypertension. Diabetes mellitus. YOUNG HENRY MD Nov 06, 2018 12:01
[2018-11-06 19:24] VITALS: BP 138/77; PULSE 66; RESP 18
[2018-11-06] MEDS: ATORVASTATIN 10 MG TAB PO SCH (21:12)
[2018-11-06] MEDS: SENNA TAB PO SCH (21:12)
[2018-11-07 02:00] VITALS: BP 142/75; PULSE 70; RESP 18
[2018-11-07] MEDS: ACCU-CHEK XX SCH ×9 (02:00→21:31)
[2018-11-07 07:30] VITALS: BP 132/76; PULSE 74; RESP 18
[2018-11-07] MEDS: metFORMIN 500 MG TAB PO SCH ×2 (07:46→17:39)
[2018-11-07] MEDS: INSULIN ASPART [NOVOLOG] 3 ML PEN SC SCH ×4 (07:47→21:00)
[2018-11-07] MEDS: LINAGLIPTIN 5 MG TABLET PO SCH (07:51)
[2018-11-07] MEDS: REPAGLINIDE 1 MG TAB PO SCH ×3 (07:51→17:39)
--- NOTE | 2018-11-07 08:38 | PN ---
DATE: 11/07/2018 SUBJECTIVE: The patient is stable. No events overnight. No fevers, chills, nausea, or vomiting. OBJECTIVE: VITAL SIGNS: Blood pressure is 142/75, respirations 18, pulse 70, temperature 98.0. HEENT: Head is normocephalic. NECK: Supple. HEART: Regular rate. LUNGS: Show diminished breath sounds at the base. ABDOMEN: Soft, nontender to palpation without rebound or guarding. EXTREMITIES: Negative for clubbing, cyanosis, no edema. DERMATOLOGIC: No rashes. MUSCULOSKELETAL: No joint effusion. NEUROLOGIC: No change in exam. MEDICATIONS: Reviewed. LABORATORY DATA: Reviewed. ASSESSMENT AND PLAN: 1. Right basal ganglia intracranial hemorrhage. The patient is currently stable. Continue medical management. Continue Keppra for seizure prophylaxis. 2. Diabetes. Diabetic regimen was adjusted. Glucose levels are markedly improved. Continue to mon itor. 3. Hypertension. Continue current blood pressure regimen. 4. Anemia. Continue to monitor hemoglobin and hematocrit levels. 5. Debility. Continue physical therapy. 6. Gastrointestinal and deep vein thrombosis prophylaxis. Dictated By: TALI POWERS DO NR/NTS Conf#: [id number] DID#: [id number] CC: TALI POWERS DO; YOUNG HENRY MD;*End*
[2018-11-07] MEDS: DOCUSATE SODIUM 100 MG CAP PO SCH ×2 (08:51→21:25)
[2018-11-07] MEDS: VITAMIN A & D 5 GM OINT PACKET TOP SCH ×2 (08:51→21:30)
[2018-11-07] MEDS: LEVETIRACETAM 500 MG TAB PO SCH ×2 (08:51→21:25)
[2018-11-07] MEDS: AMLODIPINE 10 MG TAB PO SCH (08:52)
[2018-11-07] MEDS: METOPROLOL 100 MG TAB PO SCH ×2 (08:52→21:31)
[2018-11-07] MEDS: FAMOTIDINE 20 MG TAB PO SCH ×2 (08:52→21:25)
[2018-11-07] MEDS: MAGNESIUM OXIDE 400 MG TAB PO SCH ×2 (08:52→21:25)
[2018-11-07] MEDS: HYDROCHLOROTHIAZIDE 12.5 MG CAP PO SCH (08:52)
--- NOTE | 2018-11-07 12:58 | PN ---
Date/Time of Note Date/Time of Note DATE: 11/07/18 TIME: 12:56 Subjective Patietn comfortable Objective Vital Signs Date Temp Pulse Resp B/P (MAP) Pulse Ox O2 O2 Flow FiO2 Time Delivery Rate 11/07/18 97.9 74 18 132/76 96 Room Air 07:30 (94) Intake and Output 11/06/18 11/06/18 11/07/18 1515:00 23:00 07:00 IntakeIntake Total 2000 ml 750 ml OutputOutput Total 1600 ml 500 ml BalanceBalance 400 ml 250 ml Exam pulm-cta abd-soft cga ambulation Results/Medications Result Diagram: 11/05/18 0635 11/05/18 0635 Results 24 hrs Laboratory Tests Test 11/06/18 17:18 11/06/18 21:11 11/07/18 07:45 11/07/18 12:04 Bedside Glucose 150 136 169 173 Medications Current Medications Diagnostic Test (Pha) (Accu-Chek) 1 ea 02 XX Last administered on 11/04/18 02:11; Admin Dose 1 EA; Start 11/02/18 at 02:00 Insulin Aspart (Novolog Insulin Pen) NOVOLOG *MILD* ALGORITHM WITH MEALS BEDTIME SC Last administered on 11/07/18 12:14; Admin Dose 1 UNIT; Start 11/02/18 at 07:35 Amlodipine Besylate (Norvasc) 10 mg DAILY PO Last administered on 11/07/18 08:52; Admin Dose 10 MG; Start 11/02/18 at 09:00 Atorvastatin Calcium (Lipitor) 10 mg HS PO Last administered on 11/06/18 21:12; Admin Dose 10 MG; Start 11/01/18 at 22:30 Famotidine (Pepcid) 20 mg BID PO Last administered on 11/07/18 08:52; Admin Dose 20 MG; Start 11/01/18 at 22:30 Hydrochlorothiazide (Hydrochlorothiazide) 12.5 mg DAILY PO Last administered on 11/07/18 08:52; Admin Dose 12.5 MG; Start 11/02/18 at 09:00 Levetiracetam (Keppra) 500 mg BID PO Last administered on 11/07/18 08:51; Admin Dose 500 MG; Start 11/01/18 at 22:30 Magnesium Oxide (Mag-Ox 400) 400 mg BID PO Last administered on 11/07/18 08:52; Admin Dose 400 MG; Start 11/01/18 at 22:30 Metoprolol Tartrate (Lopressor) 100 mg BID PO Last administered on 11/07/18 08:52; Admin Dose 100 MG; Start 11/01/18 at 22:30 Acetaminophen (Tylenol Tab) 650 mg Q4H PRN PO MILD PAIN(1-3)OR ELEVATED TEMP; Start 11/01/18 at 22:30 Hydralazine HCl (Apresoline) 20 mg Q8H PRN IV ELEVATED BLOOD PRESSURE; Start 11/01/18 at 22:30 Miscellaneous Information 1 ea NOTE XX ; Start 11/01/18 at 23:00 Glucose (Glutose) 15 gm Q15M PRN PO DECREASED GLUCOSE; Start 11/01/18 at 23:00 Glucose (Glutose) 22.5 gm Q15M PRN PO DECREASED GLUCOSE; Start 11/01/18 at 23:00 Dextrose (D50w Syringe) 25 ml Q15M PRN IV DECREASED GLUCOSE; Start 11/01/18 at 23:00 Dextrose (D50w Syringe) 50 ml Q15M PRN IV DECREASED GLUCOSE; Start 11/01/18 at 23:00 Glucagon (Glucagen) 1 mg Q15M PRN IM DECREASED GLUCOSE; Start 11/01/18 at 23:00 Glucose (Glutose) 15 gm Q15M PRN BUCCAL DECREASED GLUCOSE; Start 11/01/18 at 23:00 Docusate Sodium (Colace) 100 mg BID PO Last administered on 11/07/18 08:51; Admin Dose 100 MG; Start 11/02/18 at 09:00 Senna (Senokot) 1 tab HS PO Last administered on 11/06/18at 21:12; Admin Dose 1 TAB; Start 11/02/18 at 21:00 Vitamin A/Vitamin D (Vitamin A & D Oint) 1 applic BID TOP Last administered on 11/07/18 08:51; Admin Dose 1 APPLIC; Start 11/02/18 at 21:00 Zolpidem Tartrate (Ambien) 5 mg HS PRN PO INSOMNIA; Start 11/03/18 at 08:30 Linagliptin (Tradjenta) 5 mg DAILY PO Last administered on 2/28/19at 07:51; Admin Dose 5 MG; Start 11/04/18 at 09:00 Diagnostic Test (Pha) (Accu-Chek) 1 ea AC MEALS AND BEDTIME XX Last administered on 11/07/18 12:14; Admin Dose 1 EA; Start 11/04/18 at 11:30 Metformin HCl (Glucophage) 1,000 mg BID WITH MEALS PO Last administered on 11/07/18at 07:46; Admin Dose 1,000 MG; Start 11/05/18 at 17:35 Repaglinide (Prandin) 0.5 mg BEFORE MEALS PO Last administered on 11/07/18 12:21; Admin Dose 0.5 MG; Start 11/05/18 at 11:30 Diagnostic Test (Pha) (Accu-Chek) 1 ea AC MEALS AND BEDTIME XX Last administered on 11/07/18at 12:14; Admin Dose 1 EA; Start 11/05/18 at 11:30 Assessment/Plan Additional Assessment/Plan Rehab- 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 Continue rehab activities Hypertension. Diabetes mellitus. YOUNG HENRY MD Nov 07, 2018 12:58
[2018-11-07 14:00] VITALS: BP 108/67; PULSE 73; RESP 18
[2018-11-07 19:41] VITALS: BP 121/61; PULSE 72; RESP 19
[2018-11-07] MEDS: SENNA TAB PO SCH (21:25)
[2018-11-07] MEDS: ATORVASTATIN 10 MG TAB PO SCH (21:25)
[2018-11-07] MEDS ORDERED: MAGNESIUM HYDROXIDE 30ML CUP PO PRN (21:30)
[2018-11-07] MEDS ORDERED: LACTULOSE 30ML CUP PO PRN (21:30)
[2018-11-07] MEDS ORDERED: BISACODYL 10 MG SUPP PR PRN (21:30)
[2018-11-08] MEDS: ACCU-CHEK XX SCH ×5 (02:00→21:07)
[2018-11-08 02:25] VITALS: BP 138/72; PULSE 73; RESP 19
[2018-11-08 07:00] VITALS: BP 109/69; PULSE 70; RESP 18
[2018-11-08] MEDS: metFORMIN 500 MG TAB PO SCH ×2 (08:09→17:31)
[2018-11-08] MEDS: LEVETIRACETAM 500 MG TAB PO SCH ×2 (08:10→20:43)
[2018-11-08] MEDS: FAMOTIDINE 20 MG TAB PO SCH ×2 (08:10→20:41)
[2018-11-08] MEDS: LINAGLIPTIN 5 MG TABLET PO SCH (08:10)
[2018-11-08] MEDS: DOCUSATE SODIUM 100 MG CAP PO SCH ×2 (08:11→20:41)
[2018-11-08] MEDS: MAGNESIUM OXIDE 400 MG TAB PO SCH ×2 (08:11→20:41)
[2018-11-08] MEDS: METOPROLOL 100 MG TAB PO SCH ×2 (08:12→20:43)
[2018-11-08] MEDS: VITAMIN A & D 5 GM OINT PACKET TOP SCH ×2 (08:14→20:43)
[2018-11-08] MEDS: INSULIN ASPART [NOVOLOG] 3 ML PEN SC SCH ×4 (08:19→20:46)
[2018-11-08] MEDS: HYDROCHLOROTHIAZIDE 12.5 MG CAP PO SCH (08:20)
[2018-11-08] MEDS: REPAGLINIDE 1 MG TAB PO SCH ×3 (08:20→17:31)
[2018-11-08] MEDS: AMLODIPINE 10 MG TAB PO SCH (08:21)
[2018-11-08 14:11] VITALS: BP 121/77; PULSE 75; RESP 18
[2018-11-08 19:38] VITALS: BP 158/80; PULSE 1; PULSE 71; RESP 18
[2018-11-08] MEDS: SENNA TAB PO SCH (20:41)
[2018-11-08] MEDS: ATORVASTATIN 10 MG TAB PO SCH (20:41)
[2018-11-09] MEDS: ACCU-CHEK XX SCH ×5 (02:00→21:03)
[2018-11-09 02:45] VITALS: BP 137/77; PULSE 74; RESP 18
[2018-11-09 07:00] VITALS: BP 128/78; PULSE 74; RESP 18
[2018-11-09] MEDS: INSULIN ASPART [NOVOLOG] 3 ML PEN SC SCH ×4 (07:35→20:19)
[2018-11-09] MEDS: metFORMIN 500 MG TAB PO SCH ×2 (07:42→17:29)
[2018-11-09] MEDS: REPAGLINIDE 1 MG TAB PO SCH ×3 (07:46→17:30)
[2018-11-09] MEDS: HYDROCHLOROTHIAZIDE 12.5 MG CAP PO SCH (08:22)
[2018-11-09] MEDS: DOCUSATE SODIUM 100 MG CAP PO SCH ×2 (08:22→20:16)
[2018-11-09] MEDS: LEVETIRACETAM 500 MG TAB PO SCH ×2 (08:22→20:16)
[2018-11-09] MEDS: MAGNESIUM OXIDE 400 MG TAB PO SCH ×2 (08:23→20:16)
[2018-11-09] MEDS: METOPROLOL 100 MG TAB PO SCH ×2 (08:23→20:18)
[2018-11-09] MEDS: LINAGLIPTIN 5 MG TABLET PO SCH (08:23)
[2018-11-09] MEDS: FAMOTIDINE 20 MG TAB PO SCH ×2 (08:23→20:16)
[2018-11-09] MEDS: AMLODIPINE 10 MG TAB PO SCH (08:23)
[2018-11-09] MEDS: VITAMIN A & D 5 GM OINT PACKET TOP SCH ×2 (08:24→20:16)
--- NOTE | 2018-11-09 08:35 | PN ---
Date/Time of Note Date/Time of Note DATE: 11/09/18 TIME: 08:34 Subjective AWAKE ALERT FEELS L SIDE GEETTING STRONGER Objective Vital Signs Date Temp Pulse Resp B/P (MAP) Pulse Ox O2 O2 Flow FiO2 Time Delivery Rate 11/09/18 98.2 74 18 128/78 98 Room Air 07:00 (95) Intake and Output 11/08/18 11/08/18 11/09/18 1515:00 23:00 07:00 IntakeIntake Total 1200 ml 350 ml OutputOutput Total 600 ml 1300 ml BalanceBalance 600 ml -950 ml Exam LUNGS CTA COR RRR MILD L EDWARD CLOF XT AND GAIT CGA Results/Medications Result Diagram: 11/09/18 0604 11/05/18 0635 Results 24 hrs Laboratory Tests Test 11/08/18 11:45 11/08/18 17:22 11/08/18 20:45 11/09/18 06:04 Bedside Glucose 232 H 116 126 White Blood Count 9.8 Red Blood Count 4.04 L Hemoglobin 11.6 L Hematocrit 31.5 L Mean Corpuscular Volume 78.0 L Mean Corpuscular 28.7 L Hemoglobin Mean Corpuscular 36.8 Hemoglobin Concent Red Cell Distribution 11.9 Width Platelet Count 207 Mean Platelet Volume 9.6 Immature Granulocytes % 0.400 Neutrophils % 52.8 Lymphocytes % 29.9 Monocytes % 8.8 Eosinophils % 7.2 H Basophils % 0.9 Nucleated Red Blood 0.0 Cells % Immature Granulocytes # 0.040 H Neutrophils # 5.2 Lymphocytes # 2.9 Monocytes # 0.9 Eosinophils # 0.7 H Basophils # 0.1 Nucleated Red Blood 0.0 Cells # Test 11/09/18 07:41 Bedside Glucose 130 Medications Current Medications Diagnostic Test (Pha) (Accu-Chek) 1 ea 02 XX Last administered on 11/04/18at 02:11; Admin Dose 1 EA; Start 11/02/18 at 02:00 Insulin Aspart (Novolog Insulin Pen) NOVOLOG *MILD* ALGORITHM WITH MEALS BEDTIME SC Last administered on 11/08/18at 12:05; Admin Dose 3 UNIT; Start 11/02/18 at 07:35 Amlodipine Besylate (Norvasc) 10 mg DAILY PO Last administered on 11/09/18at 08:23; Admin Dose 10 MG; Start 11/02/18 at 09:00 Atorvastatin Calcium (Lipitor) 10 mg HS PO Last administered on 11/08/18 20:41; Admin Dose 10 MG; Start 11/01/18 at 22:30 Famotidine (Pepcid) 20 mg BID PO Last administered on 11/09/18 08:23; Admin Dose 20 MG; Start 11/01/18 at 22:30 Hydrochlorothiazide (Hydrochlorothiazide) 12.5 mg DAILY PO Last administered on 11/09/18 08:22; Admin Dose 12.5 MG; Start 11/02/18 at 09:00 Levetiracetam (Keppra) 500 mg BID PO Last administered on 11/09/18 08:22; Admin Dose 500 MG; Start 11/01/18 at 22:30 Magnesium Oxide (Mag-Ox 400) 400 mg BID PO Last administered on 11/09/18 08:23; Admin Dose 400 MG; Start 11/01/18 at 22:30 Metoprolol Tartrate (Lopressor) 100 mg BID PO Last administered on 11/09/18 08:23; Admin Dose 100 MG; Start 11/01/18 at 22:30 Acetaminophen (Tylenol Tab) 650 mg Q4H PRN PO MILD PAIN(1-3)OR ELEVATED TEMP; Start 11/01/18 at 22:30 Hydralazine HCl (Apresoline) 20 mg Q8H PRN IV ELEVATED BLOOD PRESSURE; Start 11/01/18 at 22:30 Miscellaneous Information 1 ea NOTE XX ; Start 11/01/18 at 23:00 Glucose (Glutose) 15 gm Q15M PRN PO DECREASED GLUCOSE; Start 11/01/18 at 23:00 Glucose (Glutose) 22.5 gm Q15M PRN PO DECREASED GLUCOSE; Start 11/01/18 at 23:00 Dextrose (D50w Syringe) 25 ml Q15M PRN IV DECREASED GLUCOSE; Start 11/01/18 at 23:00 Dextrose (D50w Syringe) 50 ml Q15M PRN IV DECREASED GLUCOSE; Start 11/01/18 at 23:00 Glucagon (Glucagen) 1 mg Q15M PRN IM DECREASED GLUCOSE; Start 11/01/18 at 23:00 Glucose (Glutose) 15 gm Q15M PRN BUCCAL DECREASED GLUCOSE; Start 11/01/18 at 23:00 Docusate Sodium (Colace) 100 mg BID PO Last administered on 11/09/18 08:22; Admin Dose 100 MG; Start 11/02/18 at 09:00 Senna (Senokot) 1 tab HS PO Last administered on 11/08/18 20:41; Admin Dose 1 TAB; Start 11/02/18 at 21:00 Vitamin A/Vitamin D (Vitamin A & D Oint) 1 applic BID TOP Last administered on 11/09/18 08:24; Admin Dose 1 APPLIC; Start 11/02/18 at 21:00 Zolpidem Tartrate (Ambien) 5 mg HS PRN PO INSOMNIA; Start 11/03/18 at 08:30 Linagliptin (Tradjenta) 5 mg DAILY PO Last administered on 11/09/18 08:23; Admi n Dose 5 MG; Start 11/04/18 at 09:00 Diagnostic Test (Pha) (Accu-Chek) 1 ea AC MEALS AND BEDTIME XX Last administered on 11/08/18 21:07; Admin Dose 1 EA; Start 11/04/18 at 11:30 Metformin HCl (Glucophage) 1,000 mg BID WITH MEALS PO Last administered on 11/09/18 07:42; Admin Dose 1,000 MG; Start 11/05/18 at 17:35 Repaglinide (Prandin) 0.5 mg BEFORE MEALS PO Last administered on 11/09/18 07:46; Admin Dose 0.5 MG; Start 11/05/18 at 11:30 Magnesium Hydroxide (Milk Of Mag) 30 ml BID PRN PO CONSTIPATION; Start 11/07/18 at 21:30 Lactulose (Enulose) 20 gm DAILY PRN PO CONSTIPATION; Start 11/07/18 at 21:30 Bisacodyl (Dulcolax Supp) 10 mg DAILY PRN [place] CONSTIPATION; Start 11/07/18 at 21:30 Assessment/Plan Additional Assessment/Plan Rehab- 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 Continue rehab activities, NEURO AND FUNCTION IMPROVING Hypertension. Diabetes mellitus SARAH HENRY MD Nov 09, 2018 08:35
--- NOTE | 2018-11-09 09:05 | PN ---
Date/Time of Note Date/Time of Note DATE: 11/09/18 TIME: 09:05 Assessment/Plan VTE Prophylaxis Risk score (from Ns)>0 risk: 2 SCD applied (from Ns): Yes Pharmacological prophylaxis: other Lines/Catheters Urinary Cath still in place: No Assessment/Plan Hospital Course medicine follow up SUBJECTIVE: The patient is stable. No events overnight. No fevers, chills, nausea, or vomiting. OBJECTIVE: HEENT: Head is normocephalic. NECK: Supple. HEART: Regular rate. LUNGS: Show diminished breath sounds at the base. ABDOMEN: Soft, nontender to palpation without rebound or guarding. EXTREMITIES: Negative for clubbing, cyanosis, no edema. DERMATOLOGIC: No rashes. MUSCULOSKELETAL: No joint effusion. NEUROLOGIC: No change in exam. MEDICATIONS: Reviewed. LABORATORY DATA: Reviewed. ASSESSMENT AND PLAN: 1. Right basal ganglia intracranial hemorrhage. The patient is currently stable. Continue medical management. Continue Keppra for seizure prophylaxis. 2. Diabetes. Diabetic regimen was adjusted. Glucose levels are markedly improved. Continue to monitor. 3. Hypertension. Continue current blood pressure regimen. 4. Anemia. Continue to monitor hemoglobin and hematocrit levels. 5. Debility. Continue physical therapy. 6. Gastrointestinal and deep vein thrombosis prophylaxis. Result Diagram: 11/09/18 0604 11/05/18 0635 Results 24hrs Laboratory Tests Test 11/08/18 11:45 11/08/18 17:22 11/08/18 20:45 11/09/18 06:04 Bedside Glucose 232 H 116 126 White Blood Count 9.8 Red Blood Count 4.04 L Hemoglobin 11.6 L Hematocrit 31.5 L Mean Corpuscular Volume 78.0 L Mean Corpuscular 28.7 L Hemoglobin Mean Corpuscular 36.8 Hemoglobin Concent Red Cell Distribution 11.9 Width Platelet Count 207 Mean Platelet Volume 9.6 Immature Granulocytes % 0.400 Neutrophils % 52.8 Lymphocytes % 29.9 Monocytes % 8.8 Eosinophils % 7.2 H Basophils % 0.9 Nucleated Red Blood 0.0 Cells % Immature Granulocytes # 0.040 H Neutrophils # 5.2 Lymphocytes # 2.9 Monocytes # 0.9 Eosinophils # 0.7 H Basophils # 0.1 Nucleated Red Blood 0.0 Cells # Test 11/09/18 07:41 Bedside Glucose 130 Exam/Review of Systems Exam Vitals Vital Signs Date Temp Pulse Resp B/P (MAP) Pulse Ox O2 O2 Flow FiO2 Time Delivery Rate 11/09/18 98.2 74 18 128/78 98 Room Air 07:00 (95) Intake and Output 11/08/18 11/08/18 11/09/18 1414:59 22:59 06:59 IntakeIntake Total 1200 ml 350 ml OutputOutput Total 600 ml 1300 ml BalanceBalance 600 ml -950 ml Results Results 24hrs Laboratory Tests Test 11/08/18 11:45 11/08/18 17:22 11/08/18 20:45 11/09/18 06:04 Bedside Glucose 232 H 116 126 White Blood Count 9.8 Red Blood Count 4.04 L Hemoglobin 11.6 L Hematocrit 31.5 L Mean Corpuscular Volume 78.0 L Mean Corpuscular 28.7 L Hemoglobin Mean Corpuscular 36.8 Hemoglobin Concent Red Cell Distribution 11.9 Width Platelet Count 207 Mean Platelet Volume 9.6 Immature Granulocytes % 0.400 Neutrophils % 52.8 Lymphocytes % 29.9 Monocytes % 8.8 Eosinophils % 7.2 H Basophils % 0.9 Nucleated Red Blood 0.0 Cells % Immature Granulocytes # 0.040 H Neutrophils # 5.2 Lymphocytes # 2.9 Monocytes # 0.9 Eosinophils # 0.7 H Basophils # 0.1 Nucleated Red Blood 0.0 Cells # Test 11/09/18 07:41 Bedside Glucose 130 Medications Medication Current Medications Diagnostic Test (Pha) (Accu-Chek) 1 ea 02 XX Last administered on 11/04/18at 02: 11; Admin Dose 1 EA; Start 11/02/18 at 02:00 Insulin Aspart (Novolog Insulin Pen) NOVOLOG *MILD* ALGORITHM WITH MEALS BEDTIME SC Last administered on 11/08/18 12:05; Admin Dose 3 UNIT; Start 11/02/18 at 07:35 Amlodipine Besylate (Norvasc) 10 mg DAILY PO Last administered on 11/09/18 08:23; Admin Dose 10 MG; Start 11/02/18 at 09:00 Atorvastatin Calcium (Lipitor) 10 mg HS PO Last administered on 11/08/18 20:41; Admin Dose 10 MG; Start 11/01/18 at 22:30 Famotidine (Pepcid) 20 mg BID PO Last administered on 11/09/18 08:23; Admin Dose 20 MG; Start 11/01/18 at 22:30 Hydrochlorothiazide (Hydrochlorothiazide) 12.5 mg DAILY PO Last administered on 11/09/18 08:22; Admin Dose 12.5 MG; Start 11/02/18 at 09:00 Levetiracetam (Keppra) 500 mg BID PO Last administered on 11/09/18 08:22; Admin Dose 500 MG; Start 11/01/18 at 22:30 Magnesium Oxide (Mag-Ox 400) 400 mg BID PO Last administered on 11/09/18 08:23; Admin Dose 400 MG; Start 11/01/18 at 22:30 Metoprolol Tartrate (Lopressor) 100 mg BID PO Last administered on 11/09/18 08:23; Admin Dose 100 MG; Start 11/01/18 at 22:30 Acetaminophen (Tylenol Tab) 650 mg Q4H PRN PO MILD PAIN(1-3)OR ELEVATED TEMP; Start 11/01/18 at 22:30 Hydralazine HCl (Apresoline) 20 mg Q8H PRN IV ELEVATED BLOOD PRESSURE; Start 11/01/18 at 22:30 Miscellaneous Information 1 ea NOTE XX ; Start 11/01/18 at 23:00 Glucose (Glutose) 15 gm Q15M PRN PO DECREASED GLUCOSE; Start 11/01/18 at 23:00 Glucose (Glutose) 22.5 gm Q15M PRN PO DECREASED GLUCOSE; Start 11/01/18 at 23:00 Dextrose (D50w Syringe) 25 ml Q15M PRN IV DECREASED GLUCOSE; Start 11/01/18 at 23:00 Dextrose (D50w Syringe) 50 ml Q15M PRN IV DECREASED GLUCOSE; Start 11/01/18 at 23:00 Glucagon (Glucagen) 1 mg Q15M PRN IM DECREASED GLUCOSE; Start 11/01/18 at 23:00 Glucose (Glutose) 15 gm Q15M PRN BUCCAL DECREASED GLUCOSE; Start 11/01/18 at 23:00 Docusate Sodium (Colace) 100 mg BID PO Last administered on 11/09/18 08:22; Admin Dose 100 MG; Start 11/02/18 at 09:00 Senna (Senokot) 1 tab HS PO Last administered on 11/08/18at 20:41; Admin Dose 1 TAB; Start 11/02/18 at 21:00 Vitamin A/Vitamin D (Vitamin A & D Oint) 1 applic BID TOP Last administered on 11/09/18 08:24; Admin Dose 1 APPLIC; Start 11/02/18 at 21:00 Zolpidem Tartrate (Ambien) 5 mg HS PRN PO INSOMNIA; Start 11/03/18 at 08:30 Linagliptin (Tradjenta) 5 mg DAILY PO Last administered on 11/09/18 08:23; Admin Dose 5 MG; Start 11/04/18 at 09:00 Diagnostic Test (Pha) (Accu-Chek) 1 ea AC MEALS AND BEDTIME XX Last administered on 11/08/18 21:07; Admin Dose 1 EA; Start 11/04/18 at 11:30 Metformin HCl (Glucophage) 1,000 mg BID WITH MEALS PO Last administered on 11/09/18 07:42; Admin Dose 1,000 MG; Start 11/05/18 at 17:35 Repaglinide (Prandin) 0.5 mg BEFORE MEALS PO Last administered on 11/09/18 07:46; Admin Dose 0.5 MG; Start 11/05/18 at 11:30 Magnesium Hydroxide (Milk Of Mag) 30 ml BID PRN PO CONSTIPATION; Start 11/07/18 at 21:30 Lactulose (Enulose) 20 gm DAILY PRN PO CONSTIPATION; Start 11/07/18 at 21:30 Bisacodyl (Dulcolax Supp) 10 mg DAILY PRN [place] CONSTIPATION; Start 11/07/18 at 21:30 ALBERTO PHILIPPE DO Nov 09, 2018 09:05
[2018-11-09 14:00] VITALS: BP 121/76; PULSE 73; RESP 17
[2018-11-09 19:39] VITALS: BP 148/77; PULSE 72; RESP 18
[2018-11-09] MEDS: SENNA TAB PO SCH (20:16)
[2018-11-09] MEDS: ATORVASTATIN 10 MG TAB PO SCH (20:16)
[2018-11-10 02:00] VITALS: BP 135/82; PULSE 72; RESP 18
[2018-11-10] MEDS: ACCU-CHEK XX SCH ×5 (02:00→21:00)
[2018-11-10 07:30] VITALS: BP 122/69; PULSE 68; RESP 18
[2018-11-10] MEDS: INSULIN ASPART [NOVOLOG] 3 ML PEN SC SCH ×4 (07:48→21:00)
[2018-11-10] MEDS: metFORMIN 500 MG TAB PO SCH ×2 (08:30→17:22)
[2018-11-10] MEDS: FAMOTIDINE 20 MG TAB PO SCH ×2 (08:30→21:06)
[2018-11-10] MEDS: VITAMIN A & D 5 GM OINT PACKET TOP SCH ×2 (08:30→21:19)
[2018-11-10] MEDS: DOCUSATE SODIUM 100 MG CAP PO SCH ×2 (08:30→21:06)
[2018-11-10] MEDS: MAGNESIUM OXIDE 400 MG TAB PO SCH ×2 (08:31→21:06)
[2018-11-10] MEDS: LEVETIRACETAM 500 MG TAB PO SCH ×2 (08:31→21:06)
[2018-11-10] MEDS: AMLODIPINE 10 MG TAB PO SCH (08:31)
[2018-11-10] MEDS: HYDROCHLOROTHIAZIDE 12.5 MG CAP PO SCH (08:31)
[2018-11-10] MEDS: REPAGLINIDE 1 MG TAB PO SCH ×3 (08:32→17:22)
[2018-11-10] MEDS: LINAGLIPTIN 5 MG TABLET PO SCH (08:32)
[2018-11-10] MEDS: METOPROLOL 100 MG TAB PO SCH ×2 (08:34→21:06)
--- NOTE | 2018-11-10 09:32 | PN ---
Date/Time of Note Date/Time of Note DATE: 11/10/18 TIME: 09:32 Assessment/Plan VTE Prophylaxis Risk score (from Nsg)>0 risk: 2 SCD applied (from Nsg): Yes Pharmacological prophylaxis: other Lines/Catheters Urinary Cath still in place: No Assessment/Plan Hospital Course medicine follow up SUBJECTIVE: The patient is stable. No events overnight. No fevers, chills, nausea, or vomiting. OBJECTIVE: HEENT: Head is normocephalic. NECK: Supple. HEART: Regular rate. LUNGS: Show diminished breath sounds at the base. ABDOMEN: Soft, nontender to palpation without rebound or guarding. EXTREMITIES: Negative for clubbing, cyanosis, no edema. DERMATOLOGIC: No rashes. MUSCULOSKELETAL: No joint effusion. NEUROLOGIC: No change in exam. MEDICATIONS: Reviewed. LABORATORY DATA: Reviewed. ASSESSMENT AND PLAN: 1. Right basal ganglia intracranial hemorrhage. The patient is currently stable. Continue medical management. Continue Keppra for seizure prophylaxis. 2. Diabetes. Diabetic regimen was adjusted. Glucose levels are markedly improved. Continue to monitor. 3. Hypertension. Continue current blood pressure regimen. 4. Anemia. Continue to monitor hemoglobin and hematocrit levels. 5. Debility. Continue physical therapy. 6. Gastrointestinal and deep vein thrombosis prophylaxis. Result Diagram: 11/09/18 0604 Results 24hrs Laboratory Tests Test 11/09/18 12:02 11/09/18 17:28 11/09/18 20:16 11/10/18 07:34 Bedside Glucose 173 114 123 145 Exam/Review of Systems Exam Vitals Vital Signs Date Temp Pulse Resp B/P (MAP) Pulse Ox O2 O2 Flow FiO2 Time Delivery Rate 11/10/18 98.1 68 18 122/69 97 Room Air 07:30 (86) Intake and Output 11/09/18 11/09/18 11/10/18 1515:00 23:00 07:00 IntakeIntake Total 800 ml 1400 ml OutputOutput Total 950 ml 600 ml BalanceBalance 800 ml 450 ml -600 ml Results Results 24hrs Laboratory Tests Test 11/09/18 12:02 11/09/18 17:28 11/09/18 20:16 11/10/18 07:34 Bedside Glucose 173 114 123 145 Medications Medication Current Medications Diagnostic Test (Pha) (Accu-Chek) 1 XX Last administered on 2/25/19at 02:11; Admin Dose 1 EA; Start 11/02/18 at 02:00 Insulin Aspart (Novolog Insulin Pen) NOVOLOG *MILD* ALGORITHM WITH MEALS BEDTIME SC Last administered on 11/10/18 07:48; Admin Dose 1 UNIT; Start 11/02/18 at 07:35 Amlodipine Besylate (Norvasc) 10 mg DAILY PO Last administered on 11/10/18 08:31; Admin Dose 10 MG; Start 11/02/18 at 09:00 Atorvastatin Calcium (Lipitor) 10 mg HS PO Last administered on 11/09/18 20:16; Admin Dose 10 MG; Start 11/01/18 at 22:30 Famotidine (Pepcid) 20 mg BID PO Last administered on 11/10/18 08:30; Admin Dose 20 MG; Start 11/01/18 at 22:30 Hydrochlorothiazide (Hydrochlorothiazide) 12.5 mg DAILY PO Last administered on 11/10/18 08:31; Admin Dose 12.5 MG; Start 11/02/18 at 09:00 Levetiracetam (Keppra) 500 mg BID PO Last administered on 11/10/18 08:31; Admin Dose 500 MG; Start 11/01/18 at 22:30 Magnesium Oxide (Mag-Ox 400) 400 mg BID PO Last administered on 11/10/18 08:31; Admin Dose 400 MG; Start 11/01/18 at 22:30 Metoprolol Tartrate (Lopressor) 100 mg BID PO Last administered on 11/10/18 08:34; Admin Dose 100 MG; Start 11/01/18 at 22:30 Acetaminophen (Tylenol Tab) 650 mg Q4H PRN PO MILD PAIN(1-3)OR ELEVATED TEMP; Start 11/01/18 at 22:30 Hydralazine HCl (Apresoline) 20 mg Q8H PRN IV ELEVATED BLOOD PRESSURE; Start 11/01/18 at 22:30 Miscellaneous Information 1 ea NOTE XX ; Start 11/01/18 at 23:00 Glucose (Glutose) 15 gm Q15M PRN PO DECREASED GLUCOSE; Start 11/01/18 at 23:00 Glucose (Glutose) 22.5 gm Q15M PRN PO DECREASED GLUCOSE; Start 11/01/18 at 23:00 Dextrose (D50w Syringe) 25 ml Q15M PRN IV DECREASED GLUCOSE; Start 11/01/18 at 23:00 Dextrose (D50w Syringe) 50 ml Q15M PRN IV DECREASED GLUCOSE; Start 11/01/18 at 23:00 Glucagon (Glucagen) 1 mg Q15M PRN IM DECREASED GLUCOSE; Start 11/01/18 at 23:00 Glucose (Glutose) 15 gm Q15M PRN BUCCAL DECREASED GLUCOSE; Start 11/01/18 at 23:00 Docusate Sodium (Colace) 100 mg BID PO Last administered on 11/10/18 08:30; Admin Dose 100 MG; Start 11/02/18 at 09:00 Senna (Senokot) 1 tab HS PO Last administered on 11/09/18 20:16; Admin Dose 1 TAB; Start 11/02/18 at 21:00 Vitamin A/Vitamin D (Vitamin A & D Oint) 1 applic BID TOP Last administered on 11/10/18 08:30; Admin Dose 1 APPLIC; Start 11/02/18 at 21:00 Zolpidem Tartrate (Ambien) 5 mg HS PRN PO INSOMNIA; Start 11/03/18 at 08:30 Linagliptin (Tradjenta) 5 mg DAILY PO Last administered on 11/10/18 08:32; Admin Dose 5 MG; Start 11/04/18 at 09:00 Diagnostic Test (Pha) (Accu-Chek) 1 ea AC MEALS AND BEDTIME XX Last administered on 11/10/18 07:35; Admin Dose 1 EA; Start 11/04/18 at 11:30 Metformin HCl (Glucophage) 1,000 mg BID WITH MEALS PO Last administered on 11/10/18 08:30; Admin Dose 1,000 MG; Start 11/05/18 at 17:35 Repaglinide (Prandin) 0.5 mg BEFORE MEALS PO Last administered on 11/10/18 08:32; Admin Dose 0.5 MG; Start 11/05/18 at 11:30 Magnesium Hydroxide (Milk Of Mag) 30 ml BID PRN PO CONSTIPATION; Start 11/07/18 at 21:30 Lactulose (Enulose) 20 gm DAILY PRN PO CONSTIPATION; Start 11/07/18 at 21:30 Bisacodyl (Dulcolax Supp) [address] CONSTIPATION; Start 11/07/18 at 21:30 ALBERTO PHILIPPE DO Nov 10, 2018 09:32
[2018-11-10 14:00] VITALS: BP 114/64; PULSE 76; RESP 20
[2018-11-10 19:40] VITALS: BP 141/73; PULSE 74; RESP 18
[2018-11-10] MEDS: ATORVASTATIN 10 MG TAB PO SCH (21:06)
[2018-11-10] MEDS: SENNA TAB PO SCH (21:06)
[2018-11-11] MEDS: ACCU-CHEK XX SCH ×5 (02:00→21:00)
[2018-11-11 02:39] VITALS: BP 121/67; PULSE 71; RESP 18
[2018-11-11 07:00] VITALS: BP 133/76; PULSE 71; RESP 18
[2018-11-11] MEDS: REPAGLINIDE 1 MG TAB PO SCH ×3 (07:49→17:34)
[2018-11-11] MEDS: metFORMIN 500 MG TAB PO SCH ×2 (07:50→17:34)
[2018-11-11] MEDS: INSULIN ASPART [NOVOLOG] 3 ML PEN SC SCH ×4 (07:54→21:00)
--- NOTE | 2018-11-11 08:46 | PN ---
DATE: 11/11/2018 SUBJECTIVE: The patient is stable. No events overnight. No fevers, chills, nausea, or vomiting. OBJECTIVE: VITAL SIGNS: Blood pressure is 121/67, respirations 18, pulse 71, temperature 98.0. HEENT: Head is normocephalic. NECK: Supple. HEART: Regular rate. LUNGS: Show diminished breath sounds at the base. ABDOMEN: Soft, nontender to palpation. No rebound or guarding. EXTREMITIES: Negative for clubbing, cyanosis, no edema. DERMATOLOGIC: No rashes. MUSCULOSKELETAL: No joint effusion. NEUROLOGIC: No change in exam. MEDICATIONS: Reviewed. LABORATORY DATA: Reviewed. ASSESSMENT AND PLAN: 1. Right basal ganglia intracranial hemorrhage. The patient is currently stable. Continue medical management. Continue Keppra for seizure prophylaxis. 2. Diabetes. The patient's regimen has been adjusted. Glucose levels have improved. Continue to m onitor. 3. Hypertension. Continue current blood pressure regimen. 4. Anemia. Continue to monitor hemoglobin and hematocrit levels. 5. Debility. Continue physical therapy. 6. Gastrointestinal and deep vein thrombosis prophylaxis. Dictated By: TALI POWERS DO NR/NTS Conf#: [id number] DID#: [id number] CC: TALI POWERS DO; YOUNG HENRY MD;*End*
[2018-11-11] MEDS: DOCUSATE SODIUM 100 MG CAP PO SCH ×2 (09:04→20:37)
[2018-11-11] MEDS: LEVETIRACETAM 500 MG TAB PO SCH ×2 (09:05→20:37)
[2018-11-11] MEDS: HYDROCHLOROTHIAZIDE 12.5 MG CAP PO SCH (09:05)
[2018-11-11] MEDS: METOPROLOL 100 MG TAB PO SCH ×2 (09:06→20:36)
[2018-11-11] MEDS: VITAMIN A & D 5 GM OINT PACKET TOP SCH ×2 (09:06→20:38)
[2018-11-11] MEDS: FAMOTIDINE 20 MG TAB PO SCH ×2 (09:06→20:37)
[2018-11-11] MEDS: AMLODIPINE 10 MG TAB PO SCH (09:06)
[2018-11-11] MEDS: LINAGLIPTIN 5 MG TABLET PO SCH (09:06)
[2018-11-11] MEDS: MAGNESIUM OXIDE 400 MG TAB PO SCH ×2 (09:06→20:36)
--- NOTE | 2018-11-11 13:19 | PN ---
Date/Time of Note Date/Time of Note DATE: 11/11/18 TIME: 13:17 Objective Vital Signs Date Temp Pulse Resp B/P (MAP) Pulse Ox O2 O2 Flow FiO2 Time Delivery Rate 11/11/18 97.9 71 18 133/76 97 Room Air 07:00 (95) Intake and Output 11/10/18 11/10/18 11/11/18 1515:00 23:00 07:00 IntakeIntake Total 850 ml 200 ml OutputOutput Total 1200 ml BalanceBalance 850 ml -1000 ml Exam INTERDISCIPLINARY TEAM CONFERENCE Physical Exam: Pulm- Abd- BOWEL- Cont BLADDER-Cont SKIN- intact OT- DRESSING-sba/min BATHING-sba/min TOILETING- sba PT- BED MOBILITY-sba TRANSFERS-cga AMBULATION-min 150 feet STAIRS- cga SPEECH- COGNITION- improved, able to do bills/ money management and medications review A/P- Interdisciplinary team conference held today. Please see interdisciplinary sheet. Working toward d.c. on 11/16 with post discharge follow up of physical therapy, occupational therapy. Results/Medications Result Diagram: 11/09/18 0604 Results 24 hrs Laboratory Tests Test 11/10/18 17:20 11/10/18 21:05 11/11/18 07:46 11/11/18 11:51 Bedside Glucose 81 133 145 166 Medications Current Medications Diagnostic Test (Pha) (Accu-Chek) 1 ea 02 XX Last administered on 11/04/18at 02:11; Admin Dose 1 EA; Start 11/02/18 at 02:00 Insulin Aspart (Novolog Insulin Pen) NOVOLOG *MILD* ALGORITHM WITH MEALS BEDTIME SC Last administered on 11/11/18at 12:01; Admin Dose 1 UNIT; Start 11/02/18 at 07:35 Amlodipine Besylate (Norvasc) 10 mg DAILY PO Last administered on 11/11/18 09:06; Admin Dose 10 MG; Start 11/02/18 at 09:00 Atorvastatin Calcium (Lipitor) 10 mg HS PO Last administered on 11/10/18at 21:06; Admin Dose 10 MG; Start 11/01/18 at 22:30 Famotidine (Pepcid) 20 mg BID PO Last administered on 11/11/18 09:06; Admin Dose 20 MG; Start 11/01/18 at 22:30 Hydrochlorothiazide (Hydrochlorothiazide) 12.5 mg DAILY PO Last administered on 11/11/18 09:05; Admin Dose 12.5 MG; Start 11/02/18 at 09:00 Levetiracetam (Keppra) 500 mg BID PO Last administered on 11/11/18 09:05; Admin Dose 500 MG; Start 11/01/18 at 22:30 Magnesium Oxide (Mag-Ox 400) 400 mg BID PO Last administered on 11/11/18 09:06; Admin Dose 400 MG; Start 11/01/18 at 22:30 Metoprolol Tartrate (Lopressor) 100 mg BID PO Last administered on 11/11/18 09:06; Admin Dose 100 MG; Start 11/01/18 at 22:30 Acetaminophen (Tylenol Tab) 650 mg Q4H PRN PO MILD PAIN(1-3)OR ELEVATED TEMP; Start 11/01/18 at 22:30 Hydralazine HCl (Apresoline) 20 mg Q8H PRN IV ELEVATED BLOOD PRESSURE; Start 11/01/18 at 22:30 Miscellaneous Information 1 ea NOTE XX ; Start 11/01/18 at 23:00 Glucose (Glutose) 15 gm Q15M PRN PO DECREASED GLUCOSE; Start 11/01/18 at 23:00 Glucose (Glutose) 22.5 gm Q15M PRN PO DECREASED GLUCOSE; Start 11/01/18 at 23:00 Dextrose (D50w Syringe) 25 ml Q15M PRN IV DECREASED GLUCOSE; Start 11/01/18 at 23:00 Dextrose (D50w Syringe) 50 ml Q15M PRN IV DECREASED GLUCOSE; Start 11/01/18 at 23:00 Glucagon (Glucagen) 1 mg Q15M PRN IM DECREASED GLUCOSE; Start 11/01/18 at 23:00 Glucose (Glutose) 15 gm Q15M PRN BUCCAL DECREASED GLUCOSE; Start 11/01/18 at 23:00 Docusate Sodium (Colace) 100 mg BID PO Last administered on 11/11/18 09:04; Admin Dose 100 MG; Start 11/02/18 at 09:00 Senna (Senokot) 1 tab HS PO Last administered on 11/10/18at 21:06; Admin Dose 1 TAB; Start 11/02/18 at 21:00 Vitamin A/Vitamin D (Vitamin A & D Oint) 1 applic BID TOP Last administered on 11/11/18 09:06; Admin Dose 1 APPLIC; Start 11/02/18 at 21:00 Zolpidem Tartrate (Ambien) 5 mg HS PRN PO INSOMNIA; Start 11/03/18 at 08:30 Linagliptin (Tradjenta) 5 mg DAILY PO Last administered on 11/11/18 09:06; Admin Dose 5 MG; Start 11/04/18 at 09:00 Diagnostic Test (Pha) (Accu-Chek) 1 ea AC MEALS AND BEDTIME XX Last administered on 11/11/18 12:01; Admin Dose 1 EA; Start 11/04/18 at 11:30 Metformin HCl (Glucophage) 1,000 mg BID WITH MEALS PO Last administered on 11/11/18 07:50; Admin Dose 1,000 MG; Start 11/05/18 at 17:35 Repaglinide (Prandin) 0.5 mg BEFORE MEALS PO Last administered on 11/11/18 11:50; Admin Dose 0.5 MG; Start 11/05/18 at 11:30 Magnesium Hydroxide (Milk Of Mag) 30 ml BID PRN PO CONSTIPATION; Start 11/07/18 at 21:30 Lactulose (Enulose) 20 gm DAILY PRN PO CONSTIPATION; Start 11/07/18 at 21:30 Bisacodyl (Dulcolax Supp) 10 mg DAILY PRN [place] CONSTIPATION; Start 11/07/18 at 21:30 YOUNG HENRY MD Nov 11, 2018 13:19
[2018-11-11 14:00] VITALS: BP 130/76; PULSE 70; RESP 18
[2018-11-11 19:53] VITALS: BP 122/71; PULSE 70; RESP 18
[2018-11-11] MEDS: ATORVASTATIN 10 MG TAB PO SCH (20:36)
[2018-11-11] MEDS: SENNA TAB PO SCH (20:37)
[2018-11-12] MEDS: ACCU-CHEK XX SCH ×5 (02:00→21:23)
[2018-11-12 06:30] VITALS: BP 118/67; PULSE 74; RESP 18
[2018-11-12 07:00] VITALS: BP 137/78; PULSE 70; RESP 18
[2018-11-12] MEDS: INSULIN ASPART [NOVOLOG] 3 ML PEN SC SCH ×4 (07:35→21:00)
[2018-11-12] MEDS: LINAGLIPTIN 5 MG TABLET PO SCH (08:25)
[2018-11-12] MEDS: MAGNESIUM OXIDE 400 MG TAB PO SCH ×2 (08:25→21:22)
[2018-11-12] MEDS: FAMOTIDINE 20 MG TAB PO SCH ×2 (08:25→21:22)
[2018-11-12] MEDS: metFORMIN 500 MG TAB PO SCH ×2 (08:25→17:30)
[2018-11-12] MEDS: VITAMIN A & D 5 GM OINT PACKET TOP SCH (08:25)
[2018-11-12] MEDS: DOCUSATE SODIUM 100 MG CAP PO SCH ×2 (08:25→21:21)
[2018-11-12] MEDS: METOPROLOL 100 MG TAB PO SCH ×2 (08:26→21:29)
[2018-11-12] MEDS: HYDROCHLOROTHIAZIDE 12.5 MG CAP PO SCH (08:26)
[2018-11-12] MEDS: LEVETIRACETAM 500 MG TAB PO SCH ×2 (08:26→21:21)
[2018-11-12] MEDS: AMLODIPINE 10 MG TAB PO SCH (08:27)
[2018-11-12] MEDS: REPAGLINIDE 1 MG TAB PO SCH ×3 (08:30→17:31)
--- NOTE | 2018-11-12 08:45 | PN ---
DATE: 11/12/2018 SUBJECTIVE: The patient is stable, no events overnight. OBJECTIVE: VITAL SIGNS: Blood pressure is 118/67, respirations 18, pulse 74, temperature 97.8. HEENT: Head is normocephalic. NECK: Supple. HEART: Regular rate. LUNGS: Show diminished breath sounds at the base. ABDOMEN: Soft, nontender to palpation without rebound or guarding. EXTREMITIES: Negative for clubbing, cyanosis, no edema. DERMATOLOGIC: No rashes. MUSCULOSKELETAL: No joint effusion. NEUROLOGIC: No change in exam. MEDICATIONS: Reviewed. LABORATORY DATA: Reviewed. ASSESSMENT AND PLAN: 1. Right basal ganglia intracranial hemorrhage. The patient is currently stable. Continue medical management. Continue Keppra for seizure prophylaxis. 2. Diabetes. The patient's diabetic regimen has been adjusted. Glucose levels are improved. Elvie nue to monitor. 3. Hypertension. Continue current blood pressure regimen. 4. Anemia. Continue to monitor hemoglobin and hematocrit levels. 5. Debility. Continue physical therapy. 6. Gastrointestinal and deep vein thrombosis prophylaxis. Dictated By: TALI POWERS DO NR/NTS Conf#: [id number] DID#: [id number] CC: TALI POWERS DO; YOUNG HENRY MD;*End*
--- NOTE | 2018-11-12 11:21 | PN ---
Date/Time of Note Date/Time of Note DATE: 11/12/18 TIME: 11:20 Objective Vital Signs Date Temp Pulse Resp B/P (MAP) Pulse Ox O2 O2 Flow FiO2 Time Delivery Rate 11/12/18 97.7 70 18 137/78 96 Room Air 07:00 (97) Intake and Output 11/11/18 11/11/18 11/12/18 1515:00 23:00 07:00 IntakeIntake Total 360 ml 2000 ml 240 ml OutputOutput Total 600 ml 1550 ml 1250 ml BalanceBalance -240 ml 450 ml -1010 ml Exam INTERDISCIPLINARY TEAM CONFERENCE Physical Exam: Pulm- cta Abd-soft BOWEL- Cont BLADDER-Cont SKIN- intact OT- DRESSING-sba BATHING-sba/min TOILETING- sba PT- BED MOBILITY-sba TRANSFERS-sba AMBULATION-cga 150 feet STAIRS- cga SPEECH- COGNITION- Able to do bills/ money management and medications review A/P- Interdisciplinary team conference held today. Please see interdisciplinary sheet. Working toward d.c. on 11/16 with post discharge follow up of physical therapy, occupational therapy. Results/Medications Result Diagram: 11/09/18 0604 Results 24 hrs Laboratory Tests Test 11/11/18 11:51 11/11/18 17:33 11/11/18 20:34 11/12/18 07:47 Bedside Glucose 166 112 113 122 Medications Current Medications Diagnostic Test (Pha) (Accu-Chek) 1 ea 02 XX Last administered on 11/04/18 02:11; Admin Dose 1 EA; Start 11/02/18 at 02:00 Insulin Aspart (Novolog Insulin Pen) NOVOLOG *MILD* ALGORITHM WITH MEALS BEDTIME SC Last administered on 11/11/18 12:01; Admin Dose 1 UNIT; Start 11/02/18 at 07:35 Amlodipine Besylate (Norvasc) 10 mg DAILY PO Last administered on 11/12/18 08:27; Admin Dose 10 MG; Start 11/02/18 at 09:00 Atorvastatin Calcium (Lipitor) 10 mg HS PO Last administered on 11/11/18 20:36; Admin Dose 10 MG; Start 11/01/18 at 22:30 Famotidine (Pepcid) 20 mg BID PO Last administered on 11/12/18 08:25; Admin Do se 20 MG; Start 11/01/18 at 22:30 Hydrochlorothiazide (Hydrochlorothiazide) 12.5 mg DAILY PO Last administered on 11/12/18 08:26; Admin Dose 12.5 MG; Start 11/02/18 at 09:00 Levetiracetam (Keppra) 500 mg BID PO Last administered on 11/12/18 08:26; Admin Dose 500 MG; Start 11/01/18 at 22:30 Magnesium Oxide (Mag-Ox 400) 400 mg BID PO Last administered on 11/12/18 08:25; Admin Dose 400 MG; Start 11/01/18 at 22:30 Metoprolol Tartrate (Lopressor) 100 mg BID PO Last administered on 11/12/18 08:26; Admin Dose 100 MG; Start 11/01/18 at 22:30 Acetaminophen (Tylenol Tab) 650 mg Q4H PRN PO MILD PAIN(1-3)OR ELEVATED TEMP; Start 11/01/18 at 22:30 Hydralazine HCl (Apresoline) 20 mg Q8H PRN IV ELEVATED BLOOD PRESSURE; Start 11/01/18 at 22:30 Miscellaneous Information 1 ea NOTE XX ; Start 11/01/18 at 23:00 Glucose (Glutose) 15 gm Q15M PRN PO DECREASED GLUCOSE; Start 11/01/18 at 23:00 Glucose (Glutose) 22.5 gm Q15M PRN PO DECREASED GLUCOSE; Start 11/01/18 at 23:00 Dextrose (D50w Syringe) 25 ml Q15M PRN IV DECREASED GLUCOSE; Start 11/01/18 at 23:00 Dextrose (D50w Syringe) 50 ml Q15M PRN IV DECREASED GLUCOSE; Start 11/01/18 at 23:00 Glucagon (Glucagen) 1 mg Q15M PRN IM DECREASED GLUCOSE; Start 11/01/18 at 23:00 Glucose (Glutose) 15 gm Q15M PRN BUCCAL DECREASED GLUCOSE; Start 11/01/18 at 23:00 Docusate Sodium (Colace) 100 mg BID PO Last administered on 11/12/18 08:25; Admin Dose 100 MG; Start 11/02/18 at 09:00 Senna (Senokot) 1 tab HS PO Last administered on 11/11/18at 20:37; Admin Dose 1 TAB; Start 11/02/18 at 21:00 Vitamin A/Vitamin D (Vitamin A & D Oint) 1 applic BID TOP Last administered on 11/12/18 08:25; Admin Dose 1 APPLIC; Start 11/02/18 at 21:00 Zolpidem Tartrate (Ambien) 5 mg HS PRN PO INSOMNIA; Start 11/03/18 at 08:30 Linagliptin (Tradjenta) 5 mg DAILY PO Last administered on 11/12/18 08:25; Admin Dose 5 MG; Start 11/04/18 at 09:00 Diagnostic Test (Pha) (Accu-Chek) 1 ea AC MEALS AND BEDTIME XX Last administered on 11/12/18 07:53; Admin Dose 1 EA; Start 11/04/18 at 11:30 Metformin HCl (Glucophage) 1,000 mg BID WITH MEALS PO Last administered on 11/12/18 08:25; Admin Dose 1,000 MG; Start 11/05/18 at 17:35 Repaglinide (Prandin) 0.5 mg BEFORE MEALS PO Last administered on 11/12/18 08:30; Admin Dose 0.5 MG; Start 11/05/18 at 11:30 Magnesium Hydroxide (Milk Of Mag) 30 ml BID PRN PO CONSTIPATION; Start 11/07/18 at 21:30 Lactulose (Enulose) 20 gm DAILY PRN PO CONSTIPATION; Start 11/07/18 at 21:30 Bisacodyl (Dulcolax Supp) 10 mg DAILY PRN [place] CONSTIPATION; Start 11/07/18 at 21:30 YOUNG HENRY MD Nov 12, 2018 11:21
[2018-11-12 14:00] VITALS: BP 121/72; PULSE 68; RESP 18
[2018-11-12 20:09] VITALS: BP 112/69; PULSE 70; RESP 18
[2018-11-12] MEDS ORDERED: PETROLATUM 28.35 GM JELLY TOP SCH (21:00)
[2018-11-12] MEDS: SENNA TAB PO SCH (21:00)
[2018-11-12] MEDS: ATORVASTATIN 10 MG TAB PO SCH (21:21)
[2018-11-12] MEDS: PETROLATUM 28.35 GM JELLY TOP SCH (21:22)
[2018-11-13] MEDS: ACCU-CHEK XX SCH ×5 (02:00→21:09)
[2018-11-13 02:30] VITALS: BP 120/65; PULSE 72; RESP 18
[2018-11-13 07:30] VITALS: BP 143/79; PULSE 71; RESP 20
[2018-11-13] MEDS: INSULIN ASPART [NOVOLOG] 3 ML PEN SC SCH ×4 (07:35→21:00)
[2018-11-13] MEDS: REPAGLINIDE 1 MG TAB PO SCH ×3 (08:09→17:20)
[2018-11-13] MEDS: metFORMIN 500 MG TAB PO SCH ×2 (08:09→17:20)
[2018-11-13] MEDS: DOCUSATE SODIUM 100 MG CAP PO SCH ×2 (08:29→21:00)
[2018-11-13] MEDS: HYDROCHLOROTHIAZIDE 12.5 MG CAP PO SCH (08:30)
[2018-11-13] MEDS: LEVETIRACETAM 500 MG TAB PO SCH ×2 (08:30→21:08)
[2018-11-13] MEDS: MAGNESIUM OXIDE 400 MG TAB PO SCH ×2 (08:30→21:08)
[2018-11-13] MEDS: METOPROLOL 100 MG TAB PO SCH ×2 (08:30→21:09)
[2018-11-13] MEDS: AMLODIPINE 10 MG TAB PO SCH (08:31)
[2018-11-13] MEDS: FAMOTIDINE 20 MG TAB PO SCH ×2 (08:31→21:08)
[2018-11-13] MEDS: LINAGLIPTIN 5 MG TABLET PO SCH (08:31)
[2018-11-13] MEDS: PETROLATUM 28.35 GM JELLY TOP SCH ×2 (08:35→21:16)
--- NOTE | 2018-11-13 08:38 | PN ---
DATE: 11/13/2018 SUBJECTIVE: The patient is stable, no events overnight. OBJECTIVE: VITAL SIGNS: Blood pressure is 143/79, pulse 71, respirations 20, temperature 97.9. HEENT: Head is normocephalic. NECK: Supple. HEART: Regular rate. LUNGS: Show diminished breath sounds at the base. ABDOMEN: Soft, nontender to palpation without rebound or guarding. EXTREMITIES: Negative for clubbing, cyanosis, no edema. DERMATOLOGIC: No rashes. MUSCULOSKELETAL: No joint effusion. NEUROLOGIC: No change in exam. MEDICATIONS: Reviewed. LABORATORY DATA: Reviewed. ASSESSMENT AND PLAN: 1. Right basal ganglia intracranial hemorrhage. The patient is currently stable. Continue medical management. Continue Keppra for seizure prophylaxis. 2. Diabetes. Continue current diuretic regimen. 3. Hypertension. Continue current blood pressure regimen. 4. Anemia. Monitor hemoglobin and hematocrit levels. 5. Debility. Continue physical therapy. 6. Gastrointestinal and deep vein thrombosis prophylaxis. Dictated By: TALI POWERS DO NR/NTS Conf#: [id number] DID#: [id number] CC: YOUNG HENRY MD; TALI POWERS DO;*EndCC*
--- NOTE | 2018-11-13 13:44 | PN ---
Date/Time of Note Date/Time of Note DATE: 11/13/18 TIME: 13:44 Subjective Motivated Objective Vital Signs Date Temp Pulse Resp B/P (MAP) Pulse Ox O2 O2 Flow FiO2 Time Delivery Rate 11/13/18 97.9 71 20 143/79 98 Room Air 07:30 (100) Intake and Output 11/12/18 11/12/18 11/13/18 1515:00 23:00 07:00 IntakeIntake Total 1450 ml 350 ml OutputOutput Total 850 ml 1300 ml BalanceBalance 600 ml -950 ml Exam pulm-cta abd-soft sba ambulation Results/Medications Result Diagram: 11/09/18 0604 Results 24 hrs Laboratory Tests Test 11/12/18 17:29 11/12/18 21:28 11/13/18 08:06 11/13/18 11:59 Bedside Glucose 99 112 138 160 Medications Current Medications Diagnostic Test (Pha) (Accu-Chek) 1 ea 02 XX Last administered on 11/04/18 02:11; Admin Dose 1 EA; Start 11/02/18 at 02:00 Insulin Aspart (Novolog Insulin Pen) NOVOLOG *MILD* ALGORITHM WITH MEALS BEDTIME SC Last administered on 11/13/18 12:04; Admin Dose 1 UNIT; Start 10/12 11/26 at 07:35 Amlodipine Besylate (Norvasc) 10 mg DAILY PO Last administered on 11/13/18 08:31; Admin Dose 10 MG; Start 11/02/18 at 09:00 Atorvastatin Calcium (Lipitor) 10 mg HS PO Last administered on 11/12/18 21:21; Admin Dose 10 MG; Start 11/01/18 at 22:30 Famotidine (Pepcid) 20 mg BID PO Last administered on 11/13/18 08:31; Admin Dose 20 MG; Start 11/01/18 at 22:30 Hydrochlorothiazide (Hydrochlorothiazide) 12.5 mg DAILY PO Last administered on 11/13/18 08:30; Admin Dose 12.5 MG; Start 11/02/18 at 09:00 Levetiracetam (Keppra) 500 mg BID PO Last administered on 11/13/18 08:30; Admin Dose 500 MG; Start 11/01/18 at 22:30 Magnesium Oxide (Mag-Ox 400) 400 mg BID PO Last administered on 11/13/18 08:30; Admin Dose 400 MG; Start 11/01/18 at 22:30 Metoprolol Tartrate (Lopressor) 100 mg BID PO Last administered on 11/13/18 08:30; Admin Dose 100 MG; Start 11/01/18 at 22:30 Acetaminophen (Tylenol Tab) 650 mg Q4H PRN PO MILD PAIN(1-3)OR ELEVATED TEMP; Start 11/01/18 at 22:30 Hydralazine HCl (Apresoline) 20 mg Q8H PRN IV ELEVATED BLOOD PRESSURE; Start 11/01/18 at 22:30 Miscellaneous Information 1 ea NOTE XX ; Start 11/01/18 at 23:00 Glucose (Glutose) 15 gm Q15M PRN PO DECREASED GLUCOSE; Start 11/01/18 at 23:00 Glucose (Glutose) 22.5 gm Q15M PRN PO DECREASED GLUCOSE; Start 11/01/18 at 23:00 Dextrose (D50w Syringe) 25 ml Q15M PRN IV DECREASED GLUCOSE; Start 11/01/18 at 23:00 Dextrose (D50w Syringe) 50 ml Q15M PRN IV DECREASED GLUCOSE; Start 11/01/18 at 23:00 Glucagon (Glucagen) 1 mg Q15M PRN IM DECREASED GLUCOSE; Start 11/01/18 at 23:00 Glucose (Glutose) 15 gm Q15M PRN BUCCAL DECREASED GLUCOSE; Start 11/01/18 at 23:00 Docusate Sodium (Colace) 100 mg BID PO Last administered on 11/13/18 08:29; Admin Dose 100 MG; Start 11/02/18 at 09:00 Senna (Senokot) 1 tab HS PO Last administered on 11/11/18 20:37; Admin Dose 1 TAB; Start 11/02/18 at 21:00 Zolpidem Tartrate (Ambien) 5 mg HS PRN PO INSOMNIA; Start 11/03/18 at 08:30 Linagliptin (Tradjenta) 5 mg DAILY PO Last administered on 11/13/18 08:31; Admin Dose 5 MG; Start 11/04/18 at 09:00 Diagnostic Test (Pha) (Accu-Chek) 1 ea AC MEALS AND BEDTIME XX Last administered on 11/13/18at 12:04; Admin Dose 1 EA; Start 11/04/18 at 11:30 Metformin HCl (Glucophage) 1,000 mg BID WITH MEALS PO Last administered on 11/13/18at 08:09; Admin Dose 1,000 MG; Start 11/05/18 at 17:35 Repaglinide (Prandin) 0.5 mg BEFORE MEALS PO Last administered on 11/13/18at 12:00; Admin Dose 0.5 MG; Start 11/05/18 at 11:30 Magnesium Hydroxide (Milk Of Mag) 30 ml BID PRN PO CONSTIPATION; Start 11/07/18 at 21:30 Lactulose (Enulose) 20 gm DAILY PRN PO CONSTIPATION; Start 11/07/18 at 21:30 Bisacodyl (Dulcolax Supp) 10 mg DAILY PRN [place] CONSTIPATION; Start 11/07/18 at 21:30 Petrolatum (Vaseline) 1 applic BID TOP Last administered on 11/13/18at 08:35; Admin Dose 1 APPLIC; Start 11/12/18 at 21:00 Assessment/Plan Additional Assessment/Plan Rehab- 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 Continue rehab activities, excellent pogress Hypertension. Diabetes mellitus. YOUNG HENRY MD Nov 13, 2018 13:44
[2018-11-13 14:00] VITALS: BP 120/70; PULSE 69; RESP 20
[2018-11-13 19:48] VITALS: BP 113/60; PULSE 65; RESP 18
[2018-11-13] MEDS: SENNA TAB PO SCH (21:00)
[2018-11-13] MEDS: ATORVASTATIN 10 MG TAB PO SCH (21:08)
[2018-11-14 02:00] VITALS: BP 122/67; PULSE 70; RESP 18
[2018-11-14] MEDS: ACCU-CHEK XX SCH ×5 (02:00→21:26)
[2018-11-14 07:30] VITALS: BP 125/71; PULSE 71; RESP 20
[2018-11-14] MEDS: INSULIN ASPART [NOVOLOG] 3 ML PEN SC SCH ×4 (07:35→21:00)
[2018-11-14] MEDS: REPAGLINIDE 1 MG TAB PO SCH ×3 (07:47→17:55)
[2018-11-14] MEDS: LINAGLIPTIN 5 MG TABLET PO SCH (07:48)
[2018-11-14] MEDS: metFORMIN 500 MG TAB PO SCH ×2 (07:48→17:55)
[2018-11-14] MEDS: LEVETIRACETAM 500 MG TAB PO SCH ×2 (08:32→21:25)
[2018-11-14] MEDS: MAGNESIUM OXIDE 400 MG TAB PO SCH ×2 (08:32→21:24)
[2018-11-14] MEDS: METOPROLOL 100 MG TAB PO SCH ×2 (08:32→21:25)
[2018-11-14] MEDS: HYDROCHLOROTHIAZIDE 12.5 MG CAP PO SCH (08:32)
[2018-11-14] MEDS: AMLODIPINE 10 MG TAB PO SCH (08:32)
[2018-11-14] MEDS: FAMOTIDINE 20 MG TAB PO SCH ×2 (08:32→21:25)
[2018-11-14] MEDS: PETROLATUM 28.35 GM JELLY TOP SCH ×2 (08:33→21:30)
[2018-11-14] MEDS: DOCUSATE SODIUM 100 MG CAP PO SCH ×2 (08:35→21:00)
--- NOTE | 2018-11-14 09:08 | PN ---
DATE: 11/14/2018 SUBJECTIVE: The patient is stable, no events overnight. No fevers, chills, nausea, vomiting. OBJECTIVE: VITAL SIGNS: Blood pressure is 122/67, respiration 18, pulse 70, temperature 97.8. HEENT: Head is normocephalic. NECK: Supple. HEART: Regular rate. LUNGS: Show diminished breath sounds at the base. ABDOMEN: Soft, nontender to palpation. No rebound or guarding. EXTREMITIES: Negative for clubbing, cyanosis, no edema. DERMATOLOGIC: No rashes. MUSCULOSKELETAL: No joint effusion. NEUROLOGIC: No change in exam. MEDICATIONS: Have been reviewed. LABORATORY DATA: Has been reviewed. ASSESSMENT AND PLAN: 1. Right basal ganglia intracranial hemorrhage. The patient is currently stable. Continue medical management. Continue Keppra for seizure prophylaxis. 2. Diabetes. Continue current insulin regimen. 3. Hypertension. Continue current blood pressure regimen. 4. Anemia. Monitor hemoglobin and hematocrit levels. 5. Debility. Continue physical therapy. 6. Gastrointestinal and deep venous thrombosis prophylaxis. Dictated By: TALI CABRAL/NTS Conf#: [id number] DID#: [id number] CC: YOUNG HENRY MD;*EndCC*
--- NOTE | 2018-11-14 11:28 | PN ---
Date/Time of Note Date/Time of Note DATE: 11/14/18 TIME: 11:27 Subjective Patient happy with his progress Objective Vital Signs Date Temp Pulse Resp B/P (MAP) Pulse Ox O2 O2 Flow FiO2 Time Delivery Rate 11/14/18 97.7 71 20 125/71 96 Room Air 07:30 (89) Intake and Output 11/13/18 11/13/18 11/14/18 1515:00 23:00 07:00 IntakeIntake Total 1800 ml 1300 ml OutputOutput Total 500 ml BalanceBalance 1800 ml 800 ml Exam pulm-cta sba ambulation Results/Medications Results 24 hrs Laboratory Tests Test 11/13/18 11:59 11/13/18 17:19 11/13/18 21:11 11/14/18 07:45 Bedside Glucose 160 107 115 137 Medications Current Medications Diagnostic Test (Pha) (Accu-Chek) 1 ea 02 XX Last administered on 11/04/18 02:11; Admin Dose 1 EA; Start 11/02/18 at 02:00 Insulin Aspart (Novolog Insulin Pen) NOVOLOG *MILD* ALGORITHM WITH MEALS BEDTIME SC Last administered on 11/13/18 12:04; Admin Dose 1 UNIT; Start 11/02/18 at 07:35 Amlodipine Besylate (Norvasc) 10 mg DAILY PO Last administered on 11/14/18 08:32; Admin Dose 10 MG; Start 11/02/18 at 09:00 Atorvastatin Calcium (Lipitor) 10 mg HS PO Last administered on 11/13/18 21:08; Admin Dose 10 MG; Start 11/01/18 at 22:30 Famotidine (Pepcid) 20 mg BID PO Last administered on 11/14/18 08:32; Admin Dose 20 MG; Start 11/01/18 at 22:30 Hydrochlorothiazide (Hydrochlorothiazide) 12.5 mg DAILY PO Last administered on 11/14/18 08:32; Admin Dose 12.5 MG; Start 11/02/18 at 09:00 Levetiracetam (Keppra) 500 mg BID PO Last administered on 11/14/18 08:32; Admin Dose 500 MG; Start 11/01/18 at 22:30 Magnesium Oxide (Mag-Ox 400) 400 mg BID PO Last administered on 11/14/18 08:32; Admin Dose 400 MG; Start 11/01/18 at 22:30 Metoprolol Tartrate (Lopressor) 100 mg BID PO Last administered on 11/14/18at 08:32; Admin Dose 100 MG; Start 11/01/18 at 22:30 Acetaminophen (Tylenol Tab) 650 mg Q4H PRN PO MILD PAIN(1-3)OR ELEVATED TEMP; Start 11/01/18 at 22:30 Hydralazine HCl (Apresoline) 20 mg Q8H PRN IV ELEVATED BLOOD PRESSURE; Start 11/01/18 at 22:30 Miscellaneous Information 1 ea NOTE XX ; Start 11/01/18 at 23:00 Glucose (Glutose) 15 gm Q15M PRN PO DECREASED GLUCOSE; Start 11/01/18 at 23:00 Glucose (Glutose) 22.5 gm Q15M PRN PO DECREASED GLUCOSE; Start 11/01/18 at 23:00 Dextrose (D50w Syringe) 25 ml Q15M PRN IV DECREASED GLUCOSE; Start 11/01/18 at 23:00 Dextrose (D50w Syringe) 50 ml Q15M PRN IV DECREASED GLUCOSE; Start 11/01/18 at 23:00 Glucagon (Glucagen) 1 mg Q15M PRN IM DECREASED GLUCOSE; Start 11/01/18 at 23:00 Glucose (Glutose) 15 gm Q15M PRN BUCCAL DECREASED GLUCOSE; Start 11/01/18 at 23:00 Docusate Sodium (Colace) 100 mg BID PO Last administered on 11/13/18at 08:29; Admin Dose 100 MG; Start 11/02/18 at 09:00 Senna (Senokot) 1 tab HS PO Last administered on 11/11/18at 20:37; Admin Dose 1 TAB; Start 11/02/18 at 21:00 Zolpidem Tartrate (Ambien) 5 mg HS PRN PO INSOMNIA; Start 11/03/18 at 08:30 Linagliptin (Tradjenta) 5 mg DAILY PO Last administered on 11/14/18at 07:48; Admin Dose 5 MG; Start 11/04/18 at 09:00 Diagnostic Test (Pha) (Accu-Chek) 1 ea AC MEALS AND BEDTIME XX Last administered on 11/14/18at 07:46; Admin Dose 1 EA; Start 11/04/18 at 11:30 Metformin HCl (Glucophage) 1,000 mg BID WITH MEALS PO Last administered on 11/14/18at 07:48; Admin Dose 1,000 MG; Start 11/05/18 at 17:35 Repaglinide (Prandin) 0.5 mg BEFORE MEALS PO Last administered on 11/14/18at 0 7:47; Admin Dose 0.5 MG; Start 11/05/18 at 11:30 Magnesium Hydroxide (Milk Of Mag) 30 ml BID PRN PO CONSTIPATION; Start 11/07/18 at 21:30 Lactulose (Enulose) 20 gm DAILY PRN PO CONSTIPATION; Start 11/07/18 at 21:30 Bisacodyl (Dulcolax Supp) 10 mg DAILY PRN [place] CONSTIPATION; Start 11/07/18 at 21:30 Petrolatum (Vaseline) 1 applic BID TOP Last administered on 11/14/18at 08:33; Admin Dose 1 APPLIC; Start 11/12/18 at 21:00 Assessment/Plan Additional Assessment/Plan Rehab- 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 Continue rehab activities, home 11/16 Hypertension. Diabetes mellitus. YOUNG HENYR MD Nov 14, 2018 11:28
[2018-11-14 14:00] VITALS: BP 116/72; PULSE 71; RESP 18
[2018-11-14 19:53] VITALS: BP 130/68; PULSE 68; RESP 18
[2018-11-14] MEDS: SENNA TAB PO SCH (21:00)
[2018-11-14] MEDS: ATORVASTATIN 10 MG TAB PO SCH (21:25)
[2018-11-15 01:59] VITALS: BP 125/72; PULSE 72; RESP 18
[2018-11-15] MEDS: ACCU-CHEK XX SCH ×5 (02:00→20:39)
[2018-11-15 07:00] VITALS: BP 128/71; PULSE 51; RESP 18
[2018-11-15] MEDS: INSULIN ASPART [NOVOLOG] 3 ML PEN SC SCH ×4 (07:35→20:39)
[2018-11-15] MEDS: REPAGLINIDE 1 MG TAB PO SCH ×3 (07:44→17:32)
[2018-11-15] MEDS: metFORMIN 500 MG TAB PO SCH ×2 (07:45→17:33)
[2018-11-15] MEDS: LINAGLIPTIN 5 MG TABLET PO SCH (07:45)
[2018-11-15] MEDS: LEVETIRACETAM 500 MG TAB PO SCH ×2 (08:10→20:34)
[2018-11-15] MEDS: DOCUSATE SODIUM 100 MG CAP PO SCH ×2 (08:10→20:34)
[2018-11-15] MEDS: METOPROLOL 100 MG TAB PO SCH ×2 (08:10→20:34)
[2018-11-15] MEDS: MAGNESIUM OXIDE 400 MG TAB PO SCH ×2 (08:10→20:34)
[2018-11-15] MEDS: FAMOTIDINE 20 MG TAB PO SCH ×2 (08:11→20:33)
[2018-11-15] MEDS: AMLODIPINE 10 MG TAB PO SCH (08:11)
[2018-11-15] MEDS: HYDROCHLOROTHIAZIDE 12.5 MG CAP PO SCH (08:11)
[2018-11-15] MEDS: PETROLATUM 28.35 GM JELLY TOP SCH ×2 (08:14→20:39)
--- NOTE | 2018-11-15 09:30 | PN ---
DATE: 11/15/2018 SUBJECTIVE: The patient is stable, no events overnight. OBJECTIVE: VITAL SIGNS: Blood pressure is 125/72, respirations 18, pulse 72, temperature 97.8. HEENT: Head is normocephalic. NECK: Supple. HEART: Regular rate. LUNGS: Show diminished breath sounds at the base. ABDOMEN: Soft, nontender to palpation, rebound or guarding. EXTREMITIES: Negative for clubbing, cyanosis, no edema. DERMATOLOGIC: No rashes. MUSCULOSKELETAL: No joint effusion. NEUROLOGIC: No change in exam. MEDICATIONS: Reviewed. LABORATORY DATA: Reviewed. ASSESSMENT AND PLAN: 1. Right basal ganglia intracranial hemorrhage. The patient is currently stable. Continue medical management. Continue Keppra for seizure prophylaxis. 2. Diabetes. Continue current insulin regimen. 3. Hypertension. Continue current blood pressure regimen. 4. Anemia. Monitor hemoglobin and hematocrit levels. 5. Debility. Continue physical therapy. 6. Gastrointestinal and deep vein thrombosis prophylaxis. Dictated By: TALI POWERS DO NR/NTS Conf#: [id number] DID#: [id number] CC: TALI POWERS DO; YOUNG HENRY MD;*EndCC*
--- NOTE | 2018-11-15 13:31 | PN ---
Date/Time of Note Date/Time of Note DATE: 11/15/18 TIME: 13:30 Subjective looking forward to dc tomorrow Objective Vital Signs Date Temp Pulse Resp B/P (MAP) Pulse Ox O2 O2 Flow FiO2 Time Delivery Rate 11/15/18 97.4 51 18 128/71 96 Room Air 07:00 (90) Intake and Output 11/14/18 11/14/18 11/15/18 1414:59 22:59 06:59 IntakeIntake Total 1200 ml 1100 ml OutputOutput Total 1500 ml BalanceBalance 1200 ml -400 ml Exam pulm-cta abd-soft sba ambulation Results/Medications Results 24 hrs Laboratory Tests Test 11/14/18 17:53 11/14/18 21:28 11/15/18 07:44 11/15/18 12:03 Bedside Glucose 104 107 121 163 Medications Current Medications Diagnostic Test (Pha) (Accu-Chek) 1 ea 02 XX Last administered on 11/04/18 02:11; Admin Dose 1 EA; Start 11/02/18 at 02:00 Insulin Aspart (Novolog Insulin Pen) NOVOLOG *MILD* ALGORITHM WITH MEALS BEDTIME SC Last administered on 11/15/18 12:04; Admin Dose 1 UNIT; Start 11/02/18 at 07:35 Amlodipine Besylate (Norvasc) 10 mg DAILY PO Last administered on 11/15/18 08:11; Admin Dose 10 MG; Start 11/02/18 at 09:00 Atorvastatin Calcium (Lipitor) 10 mg HS PO Last administered on 11/14/18 21:25; Admin Dose 10 MG; Start 11/01/18 at 22:30 Famotidine (Pepcid) 20 mg BID PO Last administered on 11/15/18 08:11; Admin Dose 20 MG; Start 11/01/18 at 22:30 Hydrochlorothiazide (Hydrochlorothiazide) 12.5 mg DAILY PO Last administered on 11/15/18 08:11; Admin Dose 12.5 MG; Start 11/02/18 at 09:00 Levetiracetam (Keppra) 500 mg BID PO Last administered on 11/15/18 08:10; Admin Dose 500 MG; Start 11/01/18 at 22:30 Magnesium Oxide (Mag-Ox 400) 400 mg BID PO Last administered on 3/8/19at 08:10; Admin Dose 400 MG; Start 11/01/18 at 22:30 Metoprolol Tartrate (Lopressor) 100 mg BID PO Last administered on 11/15/18 08:10; Admin Dose 100 MG; Start 11/01/18 at 22:30 Acetaminophen (Tylenol Tab) 650 mg Q4H PRN PO MILD PAIN(1-3)OR ELEVATED TEMP; Start 11/01/18 at 22:30 Hydralazine HCl (Apresoline) 20 mg Q8H PRN IV ELEVATED BLOOD PRESSURE; Start 11/01/18 at 22:30 Miscellaneous Information 1 ea NOTE XX ; Start 11/01/18 at 23:00 Glucose (Glutose) 15 gm Q15M PRN PO DECREASED GLUCOSE; Start 11/01/18 at 23:00 Glucose (Glutose) 22.5 gm Q15M PRN PO DECREASED GLUCOSE; Start 11/01/18 at 23:00 Dextrose (D50w Syringe) 25 ml Q15M PRN IV DECREASED GLUCOSE; Start 11/01/18 at 23:00 Dextrose (D50w Syringe) 50 ml Q15M PRN IV DECREASED GLUCOSE; Start 11/01/18 at 23:00 Glucagon (Glucagen) 1 mg Q15M PRN IM DECREASED GLUCOSE; Start 11/01/18 at 23:00 Glucose (Glutose) 15 gm Q15M PRN BUCCAL DECREASED GLUCOSE; Start 11/01/18 at 23:00 Docusate Sodium (Colace) 100 mg BID PO Last administered on 11/15/18 08:10; Admin Dose 100 MG; Start 11/02/18 at 09:00 Senna (Senokot) 1 tab HS PO Last administered on 11/11/18at 20:37; Admin Dose 1 TAB; Start 11/02/18 at 21:00 Zolpidem Tartrate (Ambien) 5 mg HS PRN PO INSOMNIA; Start 11/03/18 at 08:30 Linagliptin (Tradjenta) 5 mg DAILY PO Last administered on 11/15/18at 07:45; Admin Dose 5 MG; Start 11/04/18 at 09:00 Diagnostic Test (Pha) (Accu-Chek) 1 ea AC MEALS AND BEDTIME XX Last administered on 11/14/18 21:26; Admin Dose 1 EA; Start 11/04/18 at 11:30 Metformin HCl (Glucophage) 1,000 mg BID WITH MEALS PO Last administered on at 07:45; Admin Dose 1,000 MG; Start 11/05/18 at 17:35 Repaglinide (Prandin) 0.5 mg BEFORE MEALS PO Last administered on 11/15/18at 12:07; Admin Dose 0.5 MG; Start 11/05/18 at 11:30 Magnesium Hydroxide (Milk Of Mag) 30 ml BID PRN PO CONSTIPATION; Start 11/07/18 at 21:30 Lactulose (Enulose) 20 gm DAILY PRN PO CONSTIPATION; Start 11/07/18 at 21:30 Bisacodyl (Dulcolax Supp) 10 mg DAILY PRN [place] CONSTIPATION; Start 11/07/18 at 21:30 Petrolatum (Vaseline) 1 applic BID TOP Last administered on 11/15/18at 08:14; Admin Dose 1 APPLIC; Start 11/12/18 at 21:00 Assessment/Plan Additional Assessment/Plan Rehab- 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 Continue rehab activities, home tomorrow Hypertension. Diabetes mellitus. YOUNG HENRY MD Nov 15, 2018 13:31
[2018-11-15 14:00] VITALS: BP 130/70; PULSE 55; RESP 18
[2018-11-15 19:40] VITALS: BP 122/67; PULSE 65; RESP 18
[2018-11-15] MEDS: ATORVASTATIN 10 MG TAB PO SCH (20:33)
[2018-11-15] MEDS: SENNA TAB PO SCH (20:34)
[2018-11-16 02:00] VITALS: BP 118/70; PULSE 67; RESP 18
[2018-11-16] MEDS: ACCU-CHEK XX SCH ×2 (02:00→07:52)
[2018-11-16 07:00] VITALS: BP 117/67; PULSE 71; RESP 18
[2018-11-16] MEDS: INSULIN ASPART [NOVOLOG] 3 ML PEN SC SCH (07:35)
[2018-11-16] MEDS: LINAGLIPTIN 5 MG TABLET PO SCH (08:52)
[2018-11-16] MEDS: LEVETIRACETAM 500 MG TAB PO SCH (08:52)
[2018-11-16] MEDS: metFORMIN 500 MG TAB PO SCH (08:52)
[2018-11-16] MEDS: DOCUSATE SODIUM 100 MG CAP PO SCH ×2 (08:52→09:00)
[2018-11-16] MEDS: METOPROLOL 100 MG TAB PO SCH (08:53)
[2018-11-16] MEDS: FAMOTIDINE 20 MG TAB PO SCH (08:53)
[2018-11-16] MEDS: AMLODIPINE 10 MG TAB PO SCH (08:53)
[2018-11-16] MEDS: HYDROCHLOROTHIAZIDE 12.5 MG CAP PO SCH (08:53)
[2018-11-16] MEDS: MAGNESIUM OXIDE 400 MG TAB PO SCH (08:53)
[2018-11-16] MEDS: REPAGLINIDE 1 MG TAB PO SCH (08:58)
[2018-11-16] MEDS: PETROLATUM 28.35 GM JELLY TOP SCH (09:00)
--- NOTE | 2018-11-16 09:48 | DS ---
Date/Time of Note Date/Time of Note DATE: 11/16/18 TIME: 09:47 Discharge Summary Admission/Discharge Info Admit Date/Time Nov 01, 2018 at 21:35 Discharge Date/Time Discharge Diagnosis 1. 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 2. Hypertension 3. Diabetes mellitus. 4. Improvements in self-care, mobility and cognition. Patient Condition: Good Hospital Course The patient was admitted for comprehensive interdisciplinary rehabilitation and made steady functional gains from a Mod level to a S/ [place] level for self care tasks and mobility including ambulating over 150 feet with the use of a FWW. Patient's cognition also improved during the course of the stay. Patient is being discharged home with the recommendation of home health PT, OT and RN follow up. The DC meds are per the medication reconciliation sheet. The discharge equipment recommendations include: FWW, BSC, shower chair. The patient will follow up with PMD upon DC. Primary Care Provider Not On Staff Doctor Pending Labs Laboratory Tests Test 11/15/18 12:03 11/15/18 17:29 11/15/18 20:37 11/16/18 07:48 Bedside 163 94 112 115 Glucose mg/dL (70-220) mg/dL (70-220) mg/dL (70-220) mg/dL (70-220) YOUNG HENRY MD Nov 16, 2018 09:48
--- NOTE | 2018-11-16 10:51 | PN ---
DATE: 11/16/2018 SUBJECTIVE: The patient is stable. No events overnight. OBJECTIVE: VITAL SIGNS: Blood pressure is 118/70, respiration 18, pulse 67, temperature 97.8. HEENT: Head is normocephalic. NECK: Supple. HEART: Regular rate. LUNGS: Show diminished breath sounds at the base. ABDOMEN: Soft, nontender to palpation without rebound or guarding. EXTREMITIES: Negative for clubbing, cyanosis, no edema. DERMATOLOGIC: No rashes. MUSCULOSKELETAL: No joint effusion. NEUROLOGIC: No change in exam. MEDICATIONS: Reviewed. LABORATORY DATA: Has been reviewed. ASSESSMENT AND PLAN: 1. Right basal ganglia intracranial hemorrhage. The patient is currently stable. Continue medical management. Continue Keppra for seizure prophylaxis. 2. Diabetes. Continue current insulin regimen. 3. Hypertension. Continue current blood pressure regimen. 4. Anemia. Monitor hemoglobin and hematocrit levels. 5. Debility. Continue physical therapy. 6. Gastrointestinal and deep vein thrombosis prophylaxis. Dictated By: TALI POWERS DO NR/NTS Conf#: [id number] DID#: [id number] CC: YOUNG HENRY MD;*EndCC*
== END 2018-11-16 11:25 | disposition home health service (06) | DRG 57 ==
LOC: EDBD 21:35 → VRC 21:35
PROVIDERS: ADMIT Physical Medicine & Rehabilitation; ATTEND Internal Medicine
PROC: F07Z5ZZ Bed Mobility Treatment (ICD-10-PCS; principal; 2018-11-02)
PROC: F07Z8ZZ Transfer Training Treatment (ICD-10-PCS; 2018-11-02)
PROC: F07Z9ZZ Gait Training/Functional Ambulation Treatment (ICD-10-PCS; 2018-11-02)
PROC: F08Z1ZZ Dressing Techniques Treatment (ICD-10-PCS; 2018-11-02)
PROC: F08Z0ZZ Bathing/Showering Techniques Treatment (ICD-10-PCS; 2018-11-02)
PROC: F08Z1ZZ Dressing Techniques Treatment (ICD-10-PCS; 2018-11-02)
PROC: F08Z2ZZ Grooming/Personal Hygiene Treatment (ICD-10-PCS; 2018-11-02)
DX: I69.154 Hemiplegia and hemiparesis following nontraumatic intracerebral hemorrhage affecting left non-dominant side (principal); E87.1 Hypo-osmolality and hyponatremia; I69.254 Hemiplegia and hemiparesis following other nontraumatic intracranial hemorrhage affecting left non-dominant side; I10 Essential (primary) hypertension; E11.9 Type 2 diabetes mellitus without complications; D64.9 Anemia, unspecified; R53.81 Other malaise
CPT/HCPCS: 80048; 80053; 81001; 82962; 83036; 83735; 84100; 85025; 87081; 87086; 92507; 92523; 97110; 97112; 97116; 97163; 97167; 97530; 97535; 97542; J1815; L1820